=== PATIENT | female | born 1960 | race Caucasian/White ===

== ENCOUNTER 2018-05-06 22:12 | Inpatient (IN) | payer BC, OTHER ==
[~2018-05-06] VITALS: Ht 149.9 cm; Wt 119.0 kg
[2018-05-07] MEDS ORDERED: SOD CHLORIDE 0.9% 500 ML IV STA (00:31)
[2018-05-07] MEDS ORDERED: AMLO-147 PO (03:49)
[2018-05-07] MEDS ORDERED: LEVO50TA7 PO (03:49)
[2018-05-07] MEDS ORDERED: DAPS25TA PO (03:49)
[2018-05-07] MEDS ORDERED: PRED5TAB PO (03:49)
[2018-05-07] MEDS ORDERED: DOCU100T9 PO (03:49)
[2018-05-07] MEDS ORDERED: PANT40TA4 PO (03:49)
[2018-05-07] MEDS ORDERED: ALBUTEROL/IPRATROPIUM (NEB) 3 ML AMP HHN PRN (05:00)
[2018-05-07] MEDS ORDERED: NACL 0.9% 3 ML SYG IV SCH (05:00)
[2018-05-07] MEDS ORDERED: ACETAMINOPHEN 325 MG TAB PO PRN (05:00)
[2018-05-07] MEDS ORDERED: ONDANSETRON 4 MG INJ IV PRN (05:00)
--- NOTE | 2018-05-07 05:30 | ERD ---
ER Documentation Chief Complaint Chief Complaint BIB RA90,from home, bilat eye pressure pain radiating to L head,shakey HPI This is a very pleasant patient with ANCA vasculitis who comes in with complaints of headache and bilateral eye pressure and pain radiating to left head. She is also felt very shaky today. She is been very tremulous per the family member as well. Denies any nausea vomiting fevers or chills. Denies any chest pain. Does complain of palpitations. Denies any other current issues ROS All systems reviewed and are negative except as per history of present illness. Medications Home Meds Reported Medications Docusate Sodium (Stool Softener) 100 Mg Tablet, 100 MG PO BID 05/07/18 Pantoprazole* (Pantoprazole*) 40 Mg Tablet.dr, 40 MG PO DAILY 05/07/18 Amlodipine Besylate* (Amlodipine Besylate*) 10 Mg Tablet, 10 MG PO DAILY for 30 Days, #30 05/07/18 Levothyroxine Sodium* (Levothyroxine Sodium*) 50 Mcg Tablet, 50 MCG PO QAM for 30 Days, #30 TAKE 1 TABLET BY MOUTH EVERY DAY 05/07/18 Dapsone* (Dapsone*) 25 Mg Tablet, 50 MG PO QAM for 30 Days, #60 05/07/18 Prednisone* (Prednisone*) 5 Mg Tab, 5 MG PO QPM for 30 Days, #30 05/07/18 Allergies Allergies: Coded Allergies: No Known Allergy (Unverified , 05/07/18) PMhx/Soc History of Surgery: Yes (biopsy, cervix procedure years ago) Anesthesia Reaction: No Hx Neurological Disorder: No Hx Respiratory Disorders: No Hx Cardiac Disorders: No Hx Psychiatric Problems: No Hx Miscellaneous Medical Probl: Yes (recent dx vasculitis, hypothyroidism) Hx Alcohol Use: No Hx Substance Use: No Hx Tobacco Use: No Smoking Status: Never smoker Physical Exam Vitals Vital Signs Date Temp Pulse Resp B/P (MAP) Pulse Ox O2 O2 Flow FiO2 Time Delivery Rate 05/07/18 81 16 150/110 95 Room Air 04:02 (123) 05/06/18 97.9 104 18 157/99 94 22:17 (118) Physical Exam Const: No acute distress Head: Atraumatic Eyes: Normal Conjunctiva ENT: Normal External Ears, Nose and Mouth. Neck: Full range of motion. No meningismus. Resp: Clear to auscultation bilaterally Cardio: Regular rate and rhythm, no murmurs Abd: Soft, non tender, non distended. Normal bowel sounds Skin: No petechiae or rashes Back: No midline or flank tenderness Ext: No cyanosis, or edema Neur: Awake and alert Psych: Normal Mood and Affect Result Diagram: 05/07/185 05/07/185 Results 24 hrs Laboratory Tests Test 05/07/18 00:35 White Blood Count 8.7 10^3/ul Red Blood Count 3.50 10^6/ul Hemoglobin 10.4 g/dl Hematocrit 30.5 % Mean Corpuscular Volume 87.1 fl Mean Corpuscular Hemoglobin 29.7 pg Mean Corpuscular Hemoglobin Concent 34.1 g/dl Red Cell Distribution Width 18.9 % Platelet Count 209 10^3/UL Mean Platelet Volume 8.1 fl Immature Granulocytes % 3.700 % Neutrophils % 80.7 % Lymphocytes % 10.0 % Monocytes % 5.3 % Eosinophils % 0.1 % Basophils % 0.2 % Nucleated Red Blood Cells % 0.0 /100WBC Immature Granulocytes # 0.320 10^3/ul Neutrophils # 7.0 10^3/ul Lymphocytes # 0.9 10^3/ul Monocytes # 0.5 10^3/ul Eosinophils # 0.0 10^3/ul Basophils # 0.0 10^3/ul Nucleated Red Blood Cells # 0.0 10^3/ul Erythrocyte Sedimentation Rate 15 mm/Hr Prothrombin Time 11.1 Sec Prothrombin Time Ratio 0.9 INR International Normalized Ratio 0.79 Activated Partial Thromboplast Time 25.0 Sec Sodium Level 123 mmol/L Potassium Level 3.9 mmol/L Chloride Level 81 mmol/L Carbon Dioxide Level 29 mmol/L Anion Gap 13 Blood Urea Nitrogen 41 mg/dl Creatinine 2.67 mg/dl Est Glomerular Filtrat Rate mL/min 19 mL/min Glucose Level 111 mg/dl Calcium Level 9.4 mg/dl Troponin I < 0.012 ng/ml Thyroid Stimulating Hormone (TSH) 15.000 MIU/L Free Thyroxine Index 1.71 ug/ml Thyroxine (T4) 4.7 ug/dl Triiodothyronine (T3) Uptake 36.3 % Current Medications Medications Dose Sig/Sahra Start Time Status Last (Trade) Ordered Route PRN Stop Time Admin Dose Reason Admin Sodium 500 ml @ Q1H STAT 05/07/18 DC 05/07/18 Chloride 500 mls/hr IV 00:31 00:51 05/07/18 01:30 IV Flush 3 ml PER 05/07/18 (NS 3 ml) PROTOCOL IV 05:00 Ondansetron 4 mg Q6H PRN 05/07/18 HCl (Zofran IV 05:00 Inj) NAUSEA/VOMITI NG 650 mg Q6H PRN 05/07/18 Acetaminophen PO .PAIN 1-3 05:00 (Tylenol OR TEMP Tab) Heparin 5,000 unit Q12 SC 05/07/18 Sodium 09:00 (Porcine) (Heparin (5000 Units/1ml)) Albuterol/ 3 ml Q2H RESP 05/07/18 Ipratropium THERAPY PRN 05:00 (Duoneb) HHN SHORTNESS OF BREATH Procedures/MDM Department course: Patient seen and evaluated triage nurse. Placed in bed from evaluation. A stat cardiac workup. He was given normal saline fluid bolus. Serial exams remained stable here in the department. Diagnostic data: EKG: Rate/Rhythm: Tachycardic rate, regular rhythm QRS, ST, T-waves: [No changes consistent w/ acute ischemia] Impression: Sinus tachycardia Chest X-ray 1V Interpreted by me: Soft Tissue: No acute abnormalities Bones: No acute abnormalities Mediastinum/Cardiac Silhouette/Lungs: [No acute abnormalities] Medical decision making: This is a 57-year-old female with tremulousness to headache. She has no evidence of intracranial abnormality, however she is severely hyponatremic. She was also found to have abnormalities in her thyroid function. Patient will be admitted to telemetric setting further evaluation and management to the hospitalist physicians who has kindly accepted the patient to his service Departure Diagnosis: Primary Impression: Hyponatremia Condition: Serious RODRIGO EVERETT May 07, 2018 05:30
[2018-05-07] MEDS ORDERED: LEVOTHYROXINE 50 MCG TAB PO SCH (07:00)
--- NOTE | 2018-05-07 08:41 | HP ---
Date/Time of Note Date/Time of Note DATE: 05/07/18 TIME: 08:35 Assessment/Plan VTE Prophylaxis Pharmacological prophylaxis: heparin Lines/Catheters IV Catheter Type (from Nrs): Saline Lock Assessment/Plan Assessment/Plan 1. Depression: Patient feeling hopeless. Denied suicidal or homicidal ideation -She said that she has been taking antidepressant medication but she does not remember the name -Psychiatry evaluation 2. Headache/dizziness: Likely secondary to hyponatremia -Head CT negative for acute findings 3. Hyponatremia: Patient reported that she has been on antidepressant medication, so side effect of SSRI is a possibility -Urine electrolytes, osmolality and uric acid to workup hyponatremia -Consider endocrine or nephrology consult 4. Hypothyroidism: Continue Synthroid 5. ?Recently diagnosed vasculitis: Patient currently appears somehow lethargic and sleepy and as such not providing more info. Daytime MD to talk to her apryl ng the day to gather more info. Patient home medication includes prednisone. Result Diagram: 05/07/18 0035 05/07/18 0035 Results 24hrs Laboratory Tests Test 05/07/18 00:35 White Blood Count 8.7 Red Blood Count 3.50 L Hemoglobin 10.4 L Hematocrit 30.5 L Mean Corpuscular Volume 87.1 Mean Corpuscular Hemoglobin 29.7 Mean Corpuscular Hemoglobin Concent 34.1 Red Cell Distribution Width 18.9 H Platelet Count 209 Mean Platelet Volume 8.1 Immature Granulocytes % 3.700 H Neutrophils % 80.7 H Lymphocytes % 10.0 L Monocytes % 5.3 Eosinophils % 0.1 Basophils % 0.2 Nucleated Red Blood Cells % 0.0 Immature Granulocytes # 0.320 H Neutrophils # 7.0 Lymphocytes # 0.9 Monocytes # 0.5 Eosinophils # 0.0 Basophils # 0.0 Nucleated Red Blood Cells # 0.0 Erythrocyte Sedimentation Rate 15 Prothrombin Time 11.1 L Prothrombin Time Ratio 0.9 INR International Normalized Ratio 0.79 Activated Partial Thromboplast Time 25.0 Sodium Level 123 L Potassium Level 3.9 Chloride Level 81 L Carbon Dioxide Level 29 Anion Gap 13 Blood Urea Nitrogen 41 H Creatinine 2.67 H Est Glomerular Filtrat Rate mL/min 19 L Glucose Level 111 Osmolality 265 L Uric Acid 5.1 Calcium Level 9.4 Troponin I < 0.012 Thyroid Stimulating Hormone (TSH) 15.000 H Free Thyroxine Index 1.71 Thyroxine (T4) 4.7 L Triiodothyronine (T3) Uptake 36.3 HPI/ROS Admit Date/Time Admit Date/Time Hx of Present Illness This is a 57-year-old female with a history of depression, hypothyroidism, vasculitis who presents the ER complaining of feeling "depressed". She also complains of headache and dizziness. She says she feels hopeless. She denies suicidal or homicidal ideation even though she says in the past she thought about hurting herself. Patient appears somewhat lethargic/sleepy, but arousable. She has not been answering all questions. She said she was hungry and was asking for food. When she presented to ER, she is found to have sodium of 123. Head CT shows paranasal sinus disease and presence of bubbly secretions in the right sphenoid sinus suggests an acute component. . PMH/Family/Social Past Medical History Medical History: other (See HPI) Medications Current Medications IV Flush (NS 3 ml) 3 ml PER PROTOCOL IV ; Start 05/07/18 at 05:00 Ondansetron HCl (Zofran Inj) 4 mg Q6H PRN IV NAUSEA/VOMITING; Start 05/07/18 at 05:00 Acetaminophen (Tylenol Tab) 650 mg Q6H PRN PO .PAIN 1-3 OR TEMP; Start 05/07/18 at 05:00 Heparin Sodium (Porcine) (Heparin (5000 Units/1ml)) 5,000 unit Q12 SC ; Start 05/07/18 at 09:00 Albuterol/ Ipratropium (Duoneb) 3 ml Q2H RESP THERAPY PRN HHN SHORTNESS OF BREATH; Start 05/07/18 at 05:00 Coded Allergies: No Known Allergy (Unverified , 05/07/18) Past Surgical History Past Surgical Hx: other (See HPI) Family History Significant Family History: no pertinent family hx Social History Alcohol Use: none Smoking Status: Never smoker Drug Use: none Exam/Review of Systems Vital Signs Vitals Vital Signs Date Temp Pulse Resp B/P (MAP) Pulse Ox O2 O2 Flow FiO2 Time Delivery Rate 05/07/18 64 16 112/87 97 Room Air 07:14 (95) 05/06/18 97.9 22:17 Intake and Output 05/06/18 05/06/18 05/07/18 1515:00 23:00 07:00 IntakeIntake Total 500 ml BalanceBalance 500 ml Exam Constitutional: other (Sleepy, but arousable. No acute distress) Psych: depression Respiratory: clear to auscultation, normal air movement Cardiovascular: regular rate and rhythm, nl pulses Gastrointestinal: soft Extremities: normal pulses RODRIGO WU MD May 07, 2018 08:41
[2018-05-07] MEDS: PANTOPRAZOLE (EC) 40 MG TAB PO SCH (09:51)
[2018-05-07] MEDS: HEPARIN 5,000 UNIT/1 ML VIAL SC SCH ×2 (09:51→20:55)
[2018-05-07] MEDS: AMLODIPINE 10 MG TAB PO SCH (11:33)
[2018-05-07 14:25] VITALS: BP 126/84; PULSE 97; RESP 18
[2018-05-07 14:42] VITALS: PULSE 90
[2018-05-07 14:45] VITALS: Ht 149.9 cm; Wt 119.0 kg
[2018-05-07 15:15] VITALS: BP 109/73; PULSE 95; RESP 18
--- NOTE | 2018-05-07 16:16 | PSY ---
Date/Time of Note Date/Time of Note DATE: 05/07/18 TIME: 16:12 Psychiatric Subjective Eval Subjective Evaluation Chief Complaint: BIB RA90,from home, bilat eye pressure pain radiating to L head,shakey History of present illness Patient is a 57-year-old female with underlying medical issues of hypothyroidism, and vasculitis. The [id number] evaluation, patient states she has been increasingly depressed and lonely because of medical issues and keep poor kidney function. She however denies suicidal ideation and contracted for safety. Discussed risk and benefits of antidepressants with patient patient declined and states she is not willing to take antidepressants at this time until her kidney function improves. Past psychiatric history Denies Hospitalization: other Medical history Problems Medical Problems: (1) Hyponatremia Status: Acute Allergies: Coded Allergies: No Known Allergy (Unverified , 05/07/18) Substance Abuse Substance abuse history: No Prior substance abuse treatmen: No Social History Marital status: other DPA/Conservatorship: No Psychiatric Objective Eval Review of Systems: Review of Systems: Not Applicable Physical Examination: Physical Examination: Not Applicable Energy: Decreased Interest: Decreased Mental Status Examination: Appearance: Poor Hygiene Eye Contact: Fair Behavior: Cooperative Speech: Clear AFFECT: Flat Mood: Depressed Though Process: Linear Thought Content: Normal Orientation: x4 Cognition: Alert Insight: Intact Judgement: Intact Attention Span: Distractible Laboratory Results Laboratory Tests Test 05/07/18 00:35 White Blood Count 8.7 10^3/ul Red Blood Count 3.50 10^6/ul Hemoglobin 10.4 g/dl Hematocrit 30.5 % Mean Corpuscular Volume 87.1 fl Mean Corpuscular Hemoglobin 29.7 pg Mean Corpuscular Hemoglobin Concent 34.1 g/dl Red Cell Distribution Width 18.9 % Platelet Count 209 10^3/UL Mean Platelet Volume 8.1 fl Immature Granulocytes % 3.700 % Neutrophils % 80.7 % Lymphocytes % 10.0 % Monocytes % 5.3 % Eosinophils % 0.1 % Basophils % 0.2 % Nucleated Red Blood Cells % 0.0 /100WBC Immature Granulocytes # 0.320 10^3/ul Neutrophils # 7.0 10^3/ul Lymphocytes # 0.9 10^3/ul Monocytes # 0.5 10^3/ul Eosinophils # 0.0 10^3/ul Basophils # 0.0 10^3/ul Nucleated Red Blood Cells # 0.0 10^3/ul Erythrocyte Sedimentation Rate 15 mm/Hr Prothrombin Time 11.1 Sec Prothrombin Time Ratio 0.9 INR International Normalized Ratio 0.79 Activated Partial Thromboplast Time 25.0 Sec Sodium Level 123 mmol/L Potassium Level 3.9 mmol/L Chloride Level 81 mmol/L Carbon Dioxide Level 29 mmol/L Anion Gap 13 Blood Urea Nitrogen 41 mg/dl Creatinine 2.67 mg/dl Est Glomerular Filtrat Rate mL/min 19 mL/min Glucose Level 111 mg/dl Osmolality 265 mOsm/kg Uric Acid 5.1 mg/dl Calcium Level 9.4 mg/dl Troponin I < 0.012 ng/ml Thyroid Stimulating Hormone (TSH) 15.000 MIU/L Free Thyroxine Index 1.71 ug/ml Thyroxine (T4) 4.7 ug/dl Triiodothyronine (T3) Uptake 36.3 % Assessment and Plan Assessment/Diagnosis Diagnosis Depressive disorder single episode without psychosis Recommendation/Plan Medication Management Patient declined antidepressants Psychotherapy Provide supportive therapy Discharge Disposition: Other Legal Status: Voluntary ALANNA DE LA CRUZ NP May 07, 2018 16:16
[2018-05-07 16:27] VITALS: PULSE 93
[2018-05-07] MEDS ORDERED: LEVOTHYROXINE 88 MCG TAB PO ONE (18:00)
--- NOTE | 2018-05-07 18:00 | CONS ---
Assessment/Plan Assessment/Plan Problems: (1) Hypothyroidism Status: Chronic Comment: On her TSH her dosage of 50 mcg a day is a little bit small. We will go ahead and titrate up and follow this. Please note this can cause hyponatremia however I do not believe that this is the majority astro technician admit this individual case. Qualifiers: Qualified Codes: E03.9 - Hypothyroidism, unspecified (2) Hyponatremia Status: Acute Comment: May be due to accommodation not having a steroids with adrenal insufficiency, a side effect of dapsone which I doubt, hypothyroidism which I doubt, or the underlying vasculitis. Detailed to be obtained. (3) Anemia Status: Chronic Comment: Very likely due to the vasculitic inflammatory issue Qualifiers: Qualified Codes: D64.9 - Anemia, unspecified (4) Stage 2 acute kidney injury Status: Chronic Comment: She reports that she been having kidney issues while she was over at [facility]. (5) ANCA-positive vasculitis Status: Chronic Comment: She is already received dapsone prednisone and Rituxan. Will defer off management of this to the primary team and appropriate selected consultants as they may deem appropriate Consultation Date/Type/Reason Admit Date/Time May 07, 2018 Date of Consultation: May 07, 2018 Type of Consult Endocrinology Reason for Consultation Hypothyroidism; hyponatremia; ANCA positive vasculitis; Requesting Provider: ALO RIDDLE Date/Time of Note DATE: 05/07/18 TIME: 17:55 Hx of Present Illness This is a first recent [facility] admission for this 57-year-old woman who has recently been getting her medical care at [facility]. She carries a long history of hypothyroidism and is been on thyroid hormone support replacement therapy 50 mcg a day. She had recently been evaluated at [facility] and was ultimately found to have ANCA positive vasculitis. She has been on prednisone for this as well as Rituxan and dapsone. She reports that she had been having issues of hyponatremia predating the usage of the dapsone. At this time she is complaining of some myalgias Constitutional: no complaints (Denies fevers chills or sweats) Eyes: no complaints Respiratory: no complaints Cardiovascular: no complaints Musculoskeletal: other (Diffuse muscle aching) Past Medical History Medical History: hypothyroid, other (ANCA positive vasculitis;) Home Meds Reported Medications Docusate Sodium (Stool Softener) 100 Mg Tablet, 100 MG PO BID 05/07/18 Pantoprazole* (Pantoprazole*) 40 Mg Tablet.dr, 40 MG PO DAILY 05/07/18 Amlodipine Besylate* (Amlodipine Besylate*) 10 Mg Tablet, 10 MG PO DAILY for 30 Days, #30 05/07/18 Levothyroxine Sodium* (Levothyroxine Sodium*) 50 Mcg Tablet, 50 MCG PO QAM for 30 Days, #30 TAKE 1 TABLET BY MOUTH EVERY DAY 05/07/18 Dapsone* (Dapsone*) 25 Mg Tablet, 50 MG PO QAM for 30 Days, #60 05/07/18 Prednisone* (Prednisone*) 5 Mg Tab, 5 MG PO QPM for 30 Days, #30 05/07/18 Medications Current Medications IV Flush (NS 3 ml) 3 ml PER PROTOCOL IV ; Start 05/07/18 at 05:00 Ondansetron HCl (Zofran Inj) 4 mg Q6H PRN IV NAUSEA/VOMITING; Start 05/07/18 at 05:00 Acetaminophen (Tylenol Tab) 650 mg Q6H PRN PO .PAIN 1-3 OR TEMP; Start 05/07/18 at 05:00 Heparin Sodium (Porcine) (Heparin (5000 Units/1ml)) 5,000 unit Q12 SC Last administered on 05/07/18at 09:51; Admin Dose 5,000 UNIT; Start 05/07/18 at 09:00 Albuterol/ Ipratropium (Duoneb) 3 ml Q2H RESP THERAPY PRN HHN SHORTNESS OF BREATH; Start 05/07/18 at 05:00 Amlodipine Besylate (Norvasc) 10 mg DAILY PO Last administered on 05/07/18at 11:33; Admin Dose 10 MG; Start 05/07/18 at 09:00 Levothyroxine Sodium (Synthroid) 50 mcg AC BREAKFAST PO ; Start 05/07/18 at 07:00 Pantoprazole (Protonix Tab) 40 mg AC BREAKFAST PO Last administered on 05/07/18at 09:51; Admin Dose 40 MG; Start 05/07/18 at 07:00 Amoxicillin/ Clavulanate Potassium (Augmentin) 875 mg BID PO ; Start 05/07/18 at 21:00; Stop 05/17/18 at 20:59 Prednisone (Prednisone) 5 mg QPM PO ; Start 05/07/18 at 21:00 Allergies: Coded Allergies: No Known Allergy (Unverified , 05/07/18) Past Surgical History Past Surgical Hx: noncontributory, other (See HPI) Family History Significant Family History: no pertinent family hx Social History Alcohol Use: none Smoking Status: Never smoker Drug Use: none Exam/Review of Systems Exam Vitals Vital Signs Date Temp Pulse Resp B/P (MAP) Pulse Ox O2 O2 Flow FiO2 Time Delivery Rate 05/07/18 93 16:27 05/07/18 98.7 18 109/73 94 Room Air 15:15 (85) Intake and Output 05/06/18 05/06/18 05/07/18 1515:00 23:00 07:00 IntakeIntake Total 500 ml BalanceBalance 500 ml Constitutional: alert, oriented Head: normocephalic, atraumatic Neck: supple, non-tender Respiratory: clear to auscultation, normal air movement Cardiovascular: regular rate and rhythm, nl pulses Gastrointestinal: soft, nl liver, spleen, non-tender Results Result Diagram: 05/07/18 0035 05/07/18 1704 Results 24hrs Laboratory Tests Test 05/07/18 00:35 05/07/18 17:04 White Blood Count 8.7 Red Blood Count 3.50 L Hemoglobin 10.4 L Hematocrit 30.5 L Mean Corpuscular Volume 87.1 Mean Corpuscular Hemoglobin 29.7 Mean Corpuscular Hemoglobin Concent 34.1 Red Cell Distribution Width 18.9 H Platelet Count 209 Mean Platelet Volume 8.1 Immature Granulocytes % 3.700 H Neutrophils % 80.7 H Lymphocytes % 10.0 L Monocytes % 5.3 Eosinophils % 0.1 Basophils % 0.2 Nucleated Red Blood Cells % 0.0 Immature Granulocytes # 0.320 H Neutrophils # 7.0 Lymphocytes # 0.9 Monocytes # 0.5 Eosinophils # 0.0 Basophils # 0.0 Nucleated Red Blood Cells # 0.0 Erythrocyte Sedimentation Rate 15 Prothrombin Time 11.1 L Prothrombin Time Ratio 0.9 INR International Normalized Ratio 0.79 Activated Partial Thromboplast Time 25.0 Sodium Level 123 L 130 L Potassium Level 3.9 3.7 Chloride Level 81 L 91 #L Carbon Dioxide Level 29 31 Anion Gap 13 8 Blood Urea Nitrogen 41 H 43 H Creatinine 2.67 H 2.95 H Est Glomerular Filtrat Rate mL/min 19 L 17 L Glucose Level 111 128 Osmolality 265 L Uric Acid 5.1 Calcium Level 9.4 8.8 Troponin I < 0.012 Thyroid Stimulating Hormone (TSH) 15.000 H Free Thyroxine Index 1.71 Thyroxine (T4) 4.7 L Triiodothyronine (T3) Uptake 36.3 Medications Medication Current Medications IV Flush (NS 3 ml) 3 ml PER PROTOCOL IV ; Start 05/07/18 at 05:00 Ondansetron HCl (Zofran Inj) 4 mg Q6H PRN IV NAUSEA/VOMITING; Start 05/07/18 at 05:00 Acetaminophen (Tylenol Tab) 650 mg Q6H PRN PO .PAIN 1-3 OR TEMP; Start 05/07/18 at 05:00 Heparin Sodium (Porcine) (Heparin (5000 Units/1ml)) 5,000 unit Q12 SC Last a dministered on 05/07/18at 09:51; Admin Dose 5,000 UNIT; Start 05/07/18 at 09:00 Albuterol/ Ipratropium (Duoneb) 3 ml Q2H RESP THERAPY PRN HHN SHORTNESS OF BREATH; Start 05/07/18 at 05:00 Amlodipine Besylate (Norvasc) 10 mg DAILY PO Last administered on 05/07/18at 11:33; Admin Dose 10 MG; Start 05/07/18 at 09:00 Levothyroxine Sodium (Synthroid) 50 mcg AC BREAKFAST PO ; Start 05/07/18 at 07:00 Pantoprazole (Protonix Tab) 40 mg AC BREAKFAST PO Last administered on 05/07/18at 09:51; Admin Dose 40 MG; Start 05/07/18 at 07:00 Amoxicillin/ Clavulanate Potassium (Augmentin) 875 mg BID PO ; Start 05/07/18 at 21:00; Stop 05/17/18 at 20:59 Prednisone (Prednisone) 5 mg QPM PO ; Start 05/07/18 at 21:00 GLENDY WOOD MD May 07, 2018 18:00
--- NOTE | 2018-05-07 18:35 | CONS ---
DATE OF ADMISSION: 05/07/2018 DATE OF CONSULTATION: TYPE OF CONSULTATION: Nephrology. REASON FOR CONSULTATION: Acute kidney injury, CKD, hyponatremia. 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 Per patient, she states for several weeks and months, she was having prodroma l symptoms of malaise, fatigue, lethargy. The patient despite workup did not have diagnosis. The pa cony then states she was admitted to [facility] in 02/2018 in renal failure. The patient w as diagnosed with vasculitis presumed and possible renal limited versus microscopic polyangiitis. Th e patient states she was treated with steroids, status post 4 doses of Rituxan and received plasmaphe resis. The patient was eventually discharged home with steroids and has been following up with rheum atologist and business intelligence etl developer in outpatient setting. The patient states that she now presents to [facility] due to weakness and lethargy. The patient also complained of headache. Upon arrival to the emergency room, the patient had laboratory data drawn which showed a sodium of 123. T he patient had a BUN of 41, a creatinine of 2.6. The patient has CT scan of the head which showed pa ranasal sinus disease and secretions in the right sphenoid sinus suggestive of an acute compone nt. The patient denied any hemoptysis, hematemesis, any rashes or hematochezia. 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 PAST SURGICAL HISTORY: Status post biopsy. FAMILY HISTORY: No family history of kidney disease. SOCIAL HISTORY: Does not drink, smoke or do drugs. MEDICATIONS: Have been reviewed. REVIEW OF SYSTEMS: A 14-point review of systems conducted. Pertinent positives stated in HPI, other bronson negative. PHYSICAL EXAMINATION: VITAL SIGNS: Blood pressure is 109/73, respiration 19, pulse 95, temperature 98.7. HEENT: Head is normocephalic. NECK: Supple. HEART: Regular rate. LUNGS: Show diminished breath sounds at the base. ABDOMEN: Soft, nontender to palpation without rebound or guarding. EXTREMITIES: Negative for clubbing, cyanosis. No edema. DERMATOLOGIC: No rashes. MUSCULOSKELETAL: No joint effusion. NEUROLOGIC: No focal deficits. LABORATORY DATA: Show a sodium of 123, potassium 3.9, chloride 81, BUN 41, creatinine 2.69. TSH is 15. White count 8.7, hemoglobin 10.4 and platelet count 209. IMAGING STUDIES: Reviewed. ASSESSMENT AND PLAN: This is a 57-year-old female who presents with: 1. 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 The patient is status post pulse steroids, Rituxan x4, status post plasmapheresis. The patient's renal f unction has slowly been improving. Plan is to repeat UA with microanalysis to see if there is any ev idence of hematuria or active disease. We will recheck serologies. We will continue current treatme nt plan. We would continue prednisone. Otherwise, continue supportive care, renally dose all meds, avoid nephrotoxins. 2. Hyponatremia. Etiology is secondary to acute kidney injury causing decreased free water urinary excretion, possible component of hemodynamics in conjunction with polydipsia and low solute intake. Plan is to do a full evaluation. We will check urine sodium, urine osmolality. We will check uric a remi level, a.m. cortisol level. We would place the patient on free water restriction and encourage t he patient to have high osmolar salt diet. We will monitor serial sodium levels closely to ensure co rrection of no more than 10 to 12 mEq in a 24-hour period. Please note that the patient was reported to be taking antidepressants, SSRIs which may also be a contributing factor to hyponatremia. 3. Anemia. Monitor hemoglobin and hematocrit levels. 4. Mineral bone disorder. Monitor calcium and phosphorus levels. 5. Hypothyroidism. Continue Synthroid. 6. Antineutrophil cytoplasmic antibody-associated vasculitis. Unclear if this is granulomatosis wit h polyangiitis or microscopic polyangiitis. The patient's chest x-ray shows no radiographic findings of granulomatous; however CT scan did show evidence of sinusitis which can be seen in granulomatosis with polyangiitis. We would consider obtaining old medical records. We will continue to monitor th e patient closely. May consider possible pulmonary evaluation. Thank you, Dr. Lopez, for this interesting consult. It will be a pleasure to follow the patient with dylan longoria throughout the hospital course. Dictated By: KAYLIN WEISS DO NR/NTS Conf#: [id number] DID#: [id number] CC: RODRIGO WU MD;*[facility]*
[2018-05-07 19:52] VITALS: BP 120/83; PULSE 55; RESP 19
[2018-05-07 20:00] VITALS: PULSE 90
[2018-05-07] MEDS: predniSONE 5 MG TAB PO SCH (20:39)
[2018-05-07] MEDS: AMOXICILLIN/CLAV 875 MG TAB PO SCH (20:39)
[2018-05-07] MEDS ORDERED: predniSONE 5 MG TAB PO SCH (21:00)
[2018-05-07] MEDS ORDERED: predniSONE 2.5 MG TAB PO SCH (21:00)
[2018-05-08] VITALS (10 sets, daily range): BP systolic 113–127; BP diastolic 75–88; PULSE 66–86; RESP 18–19
[2018-05-08] MEDS: LEVOTHYROXINE 88 MCG TAB PO SCH (06:26)
[2018-05-08] MEDS: PANTOPRAZOLE (EC) 40 MG TAB PO SCH (06:26)
[2018-05-08] MEDS: AMOXICILLIN/CLAV 875 MG TAB PO SCH ×2 (08:54→21:10)
[2018-05-08] MEDS: DOCUSATE SODIUM 250 MG CAP PO SCH (08:55)
[2018-05-08] MEDS: DAPSONE 25 MG TABLET PO SCH (08:56)
[2018-05-08] MEDS: predniSONE 5 MG TAB PO SCH (08:56)
[2018-05-08] MEDS: AMLODIPINE 10 MG TAB PO SCH (08:56)
[2018-05-08] MEDS: HEPARIN 5,000 UNIT/1 ML VIAL SC SCH ×2 (09:01→21:20)
--- NOTE | 2018-05-08 09:39 | PN ---
DATE: 05/08/2018 SUBJECTIVE: The patient is stable, no events overnight. OBJECTIVE: VITAL SIGNS: Blood pressure is 120/85, respirations 18, pulse 76, temperature 98.2. HEENT: Head is normocephalic. NECK: Supple. HEART: Regular rate. LUNGS: Show diminished breath sounds at the base. ABDOMEN: Soft, nontender to palpation without rebound or guarding. EXTREMITIES: Negative for clubbing, cyanosis, no edema. DERMATOLOGIC: No rashes. MUSCULOSKELETAL: No joint effusion. NEUROLOGIC: No change in exam. MEDICATIONS: Reviewed. LABORATORY DATA: Shows sodium 130, potassium 4.6, BUN 50, creatinine 3.20. White count 5.7, hemoglo bin 8.8, platelet count is 180. Urinalysis shows positive pyuria. The patient's C3 level is 63. ASSESSMENT AND PLAN: 1. Nonoliguric acute kidney injury with previously unknown baseline creatinine. Etiology of acute k idney injury was secondary to ANCA associated vasculitis. The patient is status post steroids with t oxin x4, status post plasmapheresis. The patient's creatinine per the patient has improved and is cu rrently no longer dialysis dependent. Currently, the patient is receiving prednisone 20 mg a.m. 5 mg p.m. on a taper dose per outpatient advertising director. The patient is also scheduled for future Rituxan infusion. The patient's repeat urinalysis does show hematuria, which is suggestive of active disease . At this point, we would continue current treatment plan, the patient's home regimen of prednisone and we will monitor renal function closely. 3. Hypernatremia, etiology is secondary to decreased free water urinary excretion secondary to chron ic kidney disease. The patient's sodium levels have been improving. Continue free water restriction . The patient's urine osmolarity does show patient can adequately dilute urine. 4. Anemia. Monitor hemoglobin and hematocrit levels. 5. Mineral bone disorder. Monitor calcium and phosphorus levels. 6. Hypothyroidism. Continue Synthroid. 7. ANCA associated vasculitis, unclear if this is granulomatous with polyangiitis or microscopic mauricio yangiitis i.e. renal-limited vasculitis. The patient's chest x-ray shows no radiographic findings of granulomatous however, CT scan did show evidence of sinusitis, which can be seen in a GPA diagnosis. At this point, we will try to obtain old medical records. Continue to monitor closely. Dictated By: KAYLIN BRADY/KEVIN Conf#: [id number] DID#: [id number] CC: KEANU TROY MD; RODRIGO WU MD;*[facility]*
--- NOTE | 2018-05-08 09:57 | QN ---
Documentation Comment Date of evaluation : 05/07/18 Time of evaluation : 9.30 am attempted to obtain more hx from patient but she was still very sleepy and lethargic Chart was reviewed and consults was obtained with endo, psych and nephro Continue current defined treatment plan for now ALO RIDDLE May 08, 2018 09:57
--- NOTE | 2018-05-08 10:02 | PN ---
Date/Time of Note Date/Time of Note DATE: 05/08/18 TIME: 09:57 Assessment/Plan VTE Prophylaxis Risk score (from Nsg)>0 risk: 2 Pharmacological prophylaxis: heparin Lines/Catheters IV Catheter Type (from Nrsg): Saline Lock Urinary Cath still in place: No Assessment/Plan Hospital Course S: no new complaints, states she didn't have headaches but that she felt fullness on the side of her head and sinus pressure. denies rhoinorrhea. also reports lethargy, O: General: A&O x3, answering questions appropriately, has good insight into disease HEENT: NC/ AT. PERRL. EOM intact Neck: supple CVS: S1, S2, RRR. no murmurs. no pain on chest wall palpation Lungs: CTA b/l. no wheezing or rhonchi Abd: soft, nontender, +BS Ext: moving all extremities skin: no rashes asessment and plan: 57 yo F who had presented with ?headaches tremor, and sinus pressure and lethargy now managed as follows : 1. Symptomatic hyponatremia -2/2 reduced output per nephrology 2. Sinusitis (acute) 3. 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 Poorly controlled hypothyroidism Plan: -serum Na levels improved, free water restriction per nephro -abx for sinusitis -continue prednisone and dapsone for vasculitis. renal function worsening however, change to IV? -treatment for hypothyroidism per endo -remain on tele monitoring for now, appreciate all consults Result Diagram: 05/08/18 0515 05/08/18 0515 Results 24hrs Laboratory Tests Test 05/07/18 17:02 05/07/18 17:04 05/07/18 18:10 05/08/18 05:15 Complement C3 63 L Complement C4 29 Sodium Level 130 L 130 L Potassium Level 3.7 4.6 Chloride Level 91 #L 93 L Carbon Dioxide Level 31 31 Anion Gap 8 6 Blood Urea Nitrogen 43 H 50 H Creatinine 2.95 H 3.20 H Est Glomerular 17 L 15 L Filtrat Rate mL/min Glucose Level 128 124 Calcium Level 8.8 9.0 Urine Color STRAW Urine Clarity CLEAR Urine pH 8.0 Urine Specific 1.005 [place] Urine Ketones NEGATIVE Urine Nitrite NEGATIVE Urine Bilirubin NEGATIVE Urine Urobilinogen NEGATIVE Urine Leukocyte NEGATIVE Esterase Urine Microscopic 74 H RBC Urine Microscopic 1 WBC Urine Squamous FEW Epithelial Cells Urine Amorphous FEW A Crystals Urine Hemoglobin 3+ H Urine Osmolality 190 L Urine Random 32.96 Creatinine Urine Random Sodium 50 Urine Random < 9.7 L Potassium Urine Glucose 1+ H Urine Total Protein 86.0 H White Blood Count 5.7 # Red Blood Count 2.94 L Hemoglobin 8.8 L Hematocrit 26.9 L Mean Corpuscular 91.5 Volume Mean Corpuscular 29.9 Hemoglobin Mean Corpuscular 32.7 Hemoglobin Concent Red Cell 19.3 H Distribution Width Platelet Count 180 Mean Platelet Volume 8.4 Immature 2.800 H Granulocytes % Neutrophils % 85.2 H Lymphocytes % 8.5 L Monocytes % 3.3 Eosinophils % 0.0 Basophils % 0.2 Nucleated Red Blood 0.0 Cells % Immature 0.160 H Granulocytes # Neutrophils # 4.8 Lymphocytes # 0.5 L Monocytes # 0.2 L Eosinophils # 0.0 Basophils # 0.0 Nucleated Red Blood 0.0 Cells # Hemoglobin A1c 5.6 Magnesium Level 1.9 Total Bilirubin 0.5 Direct Bilirubin 0.00 Indirect Bilirubin 0.5 Aspartate Amino 12 L Transf (AST/SGOT) Alanine 34 Aminotransferase (AL T/SGPT) Alkaline Phosphatase 55 Total Protein 5.5 L Albumin 3.2 L Globulin 2.30 Albumin/Globulin 1.39 Ratio Triglycerides Level 79 Cholesterol Level 237 H LDL Cholesterol, 131 Calculated HDL Cholesterol 90 Cholesterol/HDL 2.6 Ratio Thyroid Stimulating 7.910 H Hormone (TSH) Exam/Review of Systems Exam Vitals Vital Signs Date Temp Pulse Resp B/P (MAP) Pulse Ox O2 O2 Flow FiO2 Time Delivery Rate 05/08/18 84 08:11 05/08/18 98.2 18 120/85 94 04:00 (97) 05/07/18 Room Air 15:15 Intake and Output 05/07/18 05/07/18 05/08/18 1515:00 23:00 07:00 IntakeIntake Total 480 ml 300 ml BalanceBalance 480 ml 300 ml Results Results 24hrs Laboratory Tests Test 05/07/18 17:02 05/07/18 17:04 05/07/18 18:10 05/08/18 05:15 Complement C3 63 L Complement C4 29 Sodium Level 130 L 130 L Potassium Level 3.7 4.6 Chloride Level 91 #L 93 L Carbon Dioxide Level 31 31 Anion Gap 8 6 Blood Urea Nitrogen 43 H 50 H Creatinine 2.95 H 3.20 H Est Glomerular 17 L 15 L Filtrat Rate mL/min Glucose Level 128 124 Calcium Level 8.8 9.0 Urine Color STRAW Urine Clarity CLEAR Urine pH 8.0 Urine Specific 1.005 [place] Urine Ketones NEGATIVE Urine Nitrite NEGATIVE Urine Bilirubin NEGATIVE Urine Urobilinogen NEGATIVE Urine Leukocyte NEGATIVE Esterase Urine Microscopic 74 H RBC Urine Microscopic 1 WBC Urine Squamous FEW Epithelial Cells Urine Amorphous FEW A Crystals Urine Hemoglobin 3+ H Urine Osmolality 190 L Urine Random 32.96 Creatinine Urine Random Sodium 50 Urine Random < 9.7 L Potassium Urine Glucose 1+ H Urine Total Protein 86.0 H White Blood Count 5.7 # Red Blood Count 2.94 L Hemoglobin 8.8 L Hematocrit 26.9 L Mean Corpuscular 91.5 Volume Mean Corpuscular 29.9 Hemoglobin Mean Corpuscular 32.7 Hemoglobin Concent Red Cell 19.3 H Distribution Width Platelet Count 180 Mean Platelet Volume 8.4 Immature 2.800 H Granulocytes % Neutrophils % 85.2 H Lymphocytes % 8.5 L Monocytes % 3.3 Eosinophils % 0.0 Basophils % 0.2 Nucleated Red Blood 0.0 Cells % Immature 0.160 H Granulocytes # Neutrophils # 4.8 Lymphocytes # 0.5 L Monocytes # 0.2 L Eosinophils # 0.0 Basophils # 0.0 Nucleated Red Blood 0.0 Cells # Hemoglobin A1c 5.6 Magnesium Level 1.9 Total Bilirubin 0.5 Direct Bilirubin 0.00 Indirect Bilirubin 0.5 Aspartate Amino 12 L Transf (AST/SGOT) Alanine 34 Aminotransferase (AL T/SGPT) Alkaline Phosphatase 55 Total Protein 5.5 L Albumin 3.2 L Globulin 2.30 Albumin/Globulin 1.39 Ratio Triglycerides Level 79 Cholesterol Level 237 H LDL Cholesterol, 131 Calculated HDL Cholesterol 90 Cholesterol/HDL 2.6 Ratio Thyroid Stimulating 7.910 H Hormone (TSH) Medications Medication Current Medications IV Flush (NS 3 ml) 3 ml PER PROTOCOL IV ; Start 05/07/18 at 05:00 Ondansetron HCl (Zofran Inj) 4 mg Q6H PRN IV NAUSEA/VOMITING; Start 05/07/18 at 05:00 Acetaminophen (Tylenol Tab) 650 mg Q6H PRN PO .PAIN 1-3 OR TEMP; Start 05/07/18 at 05:00 Heparin Sodium (Porcine) (Heparin (5000 Units/1ml)) 5,000 unit Q12 SC Last administered on 05/08/18 09:01; Admin Dose 5,000 UNIT; Start 05/07/18 at 09:00 Albuterol/ Ipratropium (Duoneb) 3 ml Q2H RESP THERAPY PRN HHN SHORTNESS OF BREATH; Start 05/07/18 at 05:00 Amlodipine Besylate (Norvasc) 10 mg DAILY PO Last administered on 05/08/18 08:56; Admin Dose 10 MG; Start 05/07/18 at 09:00 Pantoprazole (Protonix Tab) 40 mg AC BREAKFAST PO Last administered on 05/08/18 06:26; Admin Dose 40 MG; Start 05/07/18 at 07:00 Amoxicillin/ Clavulanate Potassium (Augmentin) 875 mg BID PO Last administered on 05/08/18 08:54; Admin Dose 875 MG; Start 05/07/18 at 21:00; Stop 05/17/18 at 20:59 Levothyroxine Sodium (Synthroid) 88 mcg AC BREAKFAST PO Last administered on 05/08/18 06:26; Admin Dose 88 MCG; Start 05/08/18 at 07:00 Prednisone (Prednisone) 5 mg QAM PO Last administered on 05/08/18 08:56; Admin Dose 5 MG; Start 05/07/18 at 21:00 Prednisone (Prednisone) 2.5 mg QPM PO ; Start 05/07/18 at 21:00 Dapsone (Dapsone) 50 mg QAM PO Last administered on 05/08/18 08:56; Admin Dose 50 MG; Start 05/08/18 at 09:00 Docusate Sodium (Colace) 250 mg DAILY PO Last administered on 05/08/18 08:55; Admin Dose 250 MG; Start 05/08/18 at 09:00 ALO RIDDLE May 08, 2018 10:02
--- NOTE | 2018-05-08 13:57 | CONS ---
Assessment/Plan Assessment/Plan Problems: (1) Hypothyroidism Status: Chronic Comment: Patient is improving on a higher dosage of levothyroxine. This will not stabilize out-equilibrate for another 5 weeks. Qualifiers: Hypothyroidism type: acquired Qualified Codes: E03.9 - Hypothyroidism, unspecified (2) Hyponatremia Status: Acute Comment: Improved without significant aggressive intervention. Again I believe this is primarily due to the kidney injury as opposed to other primary issues. However she is receiving physiologic replacement steroids. I am going to hold this evening's dose of prednisone to 11 PM cortisol and a morning cortisol and her put her back on her steroids. Again I doubt that she has true adrenal insufficiency but let us check to be sure (3) ANCA-positive vasculitis Status: Chronic Comment: As per primary team (4) Stage 2 acute kidney injury Status: Chronic Comment: As per nephrology Consultation Date/Type/Reason Admit Date/Time May 07, 2018 at 04:27 Initial Consult Date 05/07/18 Type of Consult Endocrinology Reason for Consultation Hypothyroidism; hyponatremia; ankle positive ANCA + vasculitis; kidney injury Requesting Provider: ALO RIDDLE Date/Time of Note DATE: 05/08/18 TIME: 13:54 24 HR Interval Summary Free Text/Dictation Patient reports she is feeling a little bit better Constitutional: no complaints Detailed Summary Gastrointestinal: constipation Endocrine: no complaints Exam/Review of Systems Exam Vitals Vital Signs Date Temp Pulse Resp B/P (MAP) Pulse Ox O2 O2 Flow FiO2 Time Delivery Rate 05/08/18 74 12:21 05/08/18 98.6 19 123/84 95 11:40 (97) 05/07/18 Room Air 15:15 Intake and Output 05/07/18 05/07/18 05/08/18 1414:59 22:59 06:59 IntakeIntake Total 480 ml 300 ml BalanceBalance 480 ml 300 ml Constitutional: alert, oriented Cardiovascular: regular rate and rhythm, nl pulses Gastrointestinal: soft, nl liver, spleen, non-tender Results Result Diagram: 05/08/18 0515 05/08/18 0515 Results 24hrs Laboratory Tests Test 05/07/18 17:02 05/07/18 17:04 05/07/18 18:10 05/08/18 05:15 Complement C3 63 L Complement C4 29 Sodium Level 130 L 130 L Potassium Level 3.7 4.6 Chloride Level 91 #L 93 L Carbon Dioxide Level 31 31 Anion Gap 8 6 Blood Urea Nitrogen 43 H 50 H Creatinine 2.95 H 3.20 H Est Glomerular 17 L 15 L Filtrat Rate mL/min Glucose Level 128 124 Calcium Level 8.8 9.0 Urine Color STRAW Urine Clarity CLEAR Urine pH 8.0 Urine Specific 1.005 [place] Urine Ketones NEGATIVE Urine Nitrite NEGATIVE Urine Bilirubin NEGATIVE Urine Urobilinogen NEGATIVE Urine Leukocyte NEGATIVE Esterase Urine Microscopic 74 H RBC Urine Microscopic 1 WBC Urine Squamous FEW Epithelial Cells Urine Amorphous FEW A Crystals Urine Hemoglobin 3+ H Urine Osmolality 190 L Urine Random 32.96 Creatinine Urine Random Sodium 50 Urine Random < 9.7 L Potassium Urine Glucose 1+ H Urine Total Protein 86.0 H White Blood Count 5.7 # Red Blood Count 2.94 L Hemoglobin 8.8 L Hematocrit 26.9 L Mean Corpuscular 91.5 Volume Mean Corpuscular 29.9 Hemoglobin Mean Corpuscular 32.7 Hemoglobin Concent Red Cell 19.3 H Distribution Width Platelet Count 180 Mean Platelet Volume 8.4 Immature 2.800 H Granulocytes % Neutrophils % 85.2 H Lymphocytes % 8.5 L Monocytes % 3.3 Eosinophils % 0.0 Basophils % 0.2 Nucleated Red Blood 0.0 Cells % Immature 0.160 H Granulocytes # Neutrophils # 4.8 Lymphocytes # 0.5 L Monocytes # 0.2 L Eosinophils # 0.0 Basophils # 0.0 Nucleated Red Blood 0.0 Cells # Hemoglobin A1c 5.6 Phosphorus Level 4.4 Magnesium Level 1.9 Total Bilirubin 0.5 Direct Bilirubin 0.00 Indirect Bilirubin 0.5 Aspartate Amino 12 L Transf (AST/SGOT) Alanine 34 Aminotransferase (AL T/SGPT) Alkaline Phosphatase 55 Total Protein 5.5 L Albumin 3.2 L Globulin 2.30 Albumin/Globulin 1.39 Ratio Triglycerides Level 79 Cholesterol Level 237 H LDL Cholesterol, 131 Calculated HDL Cholesterol 90 Cholesterol/HDL 2.6 Ratio Thyroid Stimulating 7.910 H Hormone (TSH) Medications Medication Current Medications IV Flush (NS 3 ml) 3 ml PER PROTOCOL IV ; Start 05/07/18 at 05:00 Ondansetron HCl (Zofran Inj) 4 mg Q6H PRN IV NAUSEA/VOMITING; Start 05/07/18 at 05:00 Acetaminophen (Tylenol Tab) 650 mg Q6H PRN PO .PAIN 1-3 OR TEMP; Start 05/07/18 at 05:00 Heparin Sodium (Porcine) (Heparin (5000 Units/1ml)) 5,000 unit Q12 SC Last administered on 05/08/18 09:01; Admin Dose 5,000 UNIT; Start 05/07/18 at 09:00 Albuterol/ Ipratropium (Duoneb) 3 ml Q2H RESP THERAPY PRN HHN SHORTNESS OF BREATH; Start 05/07/18 at 05:00 Amlodipine Besylate (Norvasc) 10 mg DAILY PO Last administered on 05/08/18 08:56; Admin Dose 10 MG; Start 05/07/18 at 09:00 Pantoprazole (Protonix Tab) 40 mg AC BREAKFAST PO Last administered on 05/08/18 06:26; Admin Dose 40 MG; Start 05/07/18 at 07:00 Amoxicillin/ Clavulanate Potassium (Augmentin) 875 mg BID PO Last administered on 05/08/18 08:54; Admin Dose 875 MG; Start 05/07/18 at 21:00; Stop 05/17/18 at 20:59 Levothyroxine Sodium (Synthroid) 88 mcg AC BREAKFAST PO Last administered on 05/08/18 06:26; Admin Dose 88 MCG; Start 05/08/18 at 07:00 Prednisone (Prednisone) 5 mg QAM PO Last administered on 05/08/18 08:56; Admin Dose 5 MG; Start 05/07/18 at 21:00 Prednisone (Prednisone) 2.5 mg QPM PO ; Start 05/07/18 at 21:00 Dapsone (Dapsone) 50 mg QAM PO Last administered on 05/08/18 08:56; Admin Dose 50 MG; Start 05/08/18 at 09:00 Docusate Sodium (Colace) 250 mg DAILY PO Last administered on 05/08/18 08:55; Admin Dose 250 MG; Start 05/08/18 at 09:00 GLENDY WOOD MD May 08, 2018 13:57
[2018-05-08] MEDS ORDERED: LACTULOSE 30ML CUP PO ONE (14:00)
[2018-05-09] VITALS (13 sets, daily range): BP systolic 116–139; BP diastolic 72–93; PULSE 68–109; RESP 17–18
[2018-05-09] MEDS: PANTOPRAZOLE (EC) 40 MG TAB PO SCH (05:28)
[2018-05-09] MEDS: LEVOTHYROXINE 88 MCG TAB PO SCH (05:28)
--- NOTE | 2018-05-09 06:47 | PN ---
Date/Time of Note Date/Time of Note DATE: 05/09/18 TIME: 06:46 Assessment/Plan VTE Prophylaxis Risk score (from Nsg)>0 risk: 2 SCD applied (from Nsg): No Lines/Catheters IV Catheter Type (from Nrsg): Saline Lock Urinary Cath still in place: No Assessment/Plan Hospital Course S: no new complaints, O: General: A&O x3, answering questions appropriately, has good insight into disease HEENT: NC/ AT. PERRL. EOM intact Neck: supple CVS: S1, S2, RRR. no murmurs. no pain on chest wall palpation Lungs: CTA b/l. no wheezing or rhonchi Abd: soft, nontender, +BS Ext: moving all extremities skin: no rashes asessment and plan: 57 yo F who had presented with ?headaches tremor, and sinus pressure and lethargy now managed as follows : 1. Symptomatic hyponatremia -2/2 reduced output per nephrology -Na levels improving 2. Sinusitis (acute) 3. 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 Poorly controlled hypothyroidism 5. Plan: -serum Na levels improved but still low, with free water restriction per nephro -abx for sinusitis -continue prednisone and dapsone for vasculitis. renal function still worsening however, change to IV steroids? -treatment for hypothyroidism per endo -remain on tele monitoring for now, appreciate all consults Result Diagram: 05/09/18 0517 05/09/18 0517 Results 24hrs Laboratory Tests Test 05/08/18 23:18 05/09/18 05:17 Random Cortisol 2.1 White Blood Count 6.7 Red Blood Count 2.81 L Hemoglobin 8.4 L Hematocrit 26.3 L Mean Corpuscular Volume 93.6 Mean Corpuscular Hemoglobin 29.9 Mean Corpuscular Hemoglobin Concent 31.9 L Red Cell Distribution Width 19.8 H Platelet Count 177 Mean Platelet Volume 8.5 Immature Granulocytes % 4.200 H Neutrophils % 69.3 Lymphocytes % 18.5 Monocytes % 5.3 Eosinophils % 2.1 Basophils % 0.6 Nucleated Red Blood Cells % 0.0 Immature Granulocytes # 0.280 H Neutrophils # 4.6 Lymphocytes # 1.2 Monocytes # 0.4 Eosinophils # 0.1 Basophils # 0.0 Nucleated Red Blood Cells # 0.0 Sodium Level 132 L Potassium Level 4.4 Chloride Level 96 L Carbon Dioxide Level 30 Anion Gap 6 Blood Urea Nitrogen 54 H Creatinine 3.34 H Est Glomerular Filtrat Rate mL/min 14 L Glucose Level 83 # Calcium Level 8.8 Phosphorus Level 3.4 Magnesium Level 1.9 Exam/Review of Systems Exam Vitals Vital Signs Date Temp Pulse Resp B/P (MAP) Pulse Ox O2 O2 Flow FiO2 Time Delivery Rate 05/09/18 68 04:16 05/09/18 98.5 18 120/84 97 04:00 (96) 05/08/18 Room Air 20:00 Intake and Output 05/08/18 05/08/18 05/09/18 1515:00 23:00 07:00 IntakeIntake Total 420 ml 400 ml BalanceBalance 420 ml 400 ml Results Results 24hrs Laboratory Tests Test 05/08/18 23:18 05/09/18 05:17 Random Cortisol 2.1 White Blood Count 6.7 Red Blood Count 2.81 L Hemoglobin 8.4 L Hematocrit 26.3 L Mean Corpuscular Volume 93.6 Mean Corpuscular Hemoglobin 29.9 Mean Corpuscular Hemoglobin Concent 31.9 L Red Cell Distribution Width 19.8 H Platelet Count 177 Mean Platelet Volume 8.5 Immature Granulocytes % 4.200 H Neutrophils % 69.3 Lymphocytes % 18.5 Monocytes % 5.3 Eosinophils % 2.1 Basophils % 0.6 Nucleated Red Blood Cells % 0.0 Immature Granulocytes # 0.280 H Neutrophils # 4.6 Lymphocytes # 1.2 Monocytes # 0.4 Eosinophils # 0.1 Basophils # 0.0 Nucleated Red Blood Cells # 0.0 Sodium Level 132 L Potassium Level 4.4 Chloride Level 96 L Carbon Dioxide Level 30 Anion Gap 6 Blood Urea Nitrogen 54 H Creatinine 3.34 H Est Glomerular Filtrat Rate mL/min 14 L Glucose Level 83 # Calcium Level 8.8 Phosphorus Level 3.4 Magnesium Level 1.9 Medications Medication Current Medications IV Flush (NS 3 ml) 3 ml PER PROTOCOL IV ; Start 05/07/18 at 05:00 Ondansetron HCl (Zofran Inj) 4 mg Q6H PRN IV NAUSEA/VOMITING; Start 05/07/18 at 05:00 Acetaminophen (Tylenol Tab) 650 mg Q6H PRN PO .PAIN 1-3 OR TEMP; Start 05/07/18 at 05:00 Heparin Sodium (Porcine) (Heparin (5000 Units/1ml)) 5,000 unit Q12 SC Last administered on 05/08/18 21:20; Admin Dose 5,000 UNIT; Start 05/07/18 at 09:00 Albuterol/ Ipratropium (Duoneb) 3 ml Q2H RESP THERAPY PRN HHN SHORTNESS OF BREATH; Start 05/07/18 at 05:00 Amlodipine Besylate (Norvasc) 10 mg DAILY PO Last administered on 05/08/18 08:56; Admin Dose 10 MG; Start 05/07/18 at 09:00 Pantoprazole (Protonix Tab) 40 mg AC BREAKFAST PO Last administered on 05/09/18 05:28; Admin Dose 40 MG; Start 05/07/18 at 07:00 Amoxicillin/ Clavulanate Potassium (Augmentin) 875 mg BID PO Last administered on 05/08/18 21:10; Admin Dose 875 MG; Start 05/07/18 at 21:00; Stop 05/17/18 at 20:59 Levothyroxine Sodium (Synthroid) 88 mcg AC BREAKFAST PO Last administered on 05/09/18 05:28; Admin Dose 88 MCG; Start 05/08/18 at 07:00 Prednisone (Prednisone) 5 mg QAM PO Last administered on 05/08/18 08:56; Admin Dose 5 MG; Start 05/07/18 at 21:00 Prednisone (Prednisone) 2.5 mg QPM PO ; Start 05/07/18 at 21:00; Status Hold Dapsone (Dapsone) 50 mg QAM PO Last administered on 05/08/18 08:56; Admin Dose 50 MG; Start 05/08/18 at 09:00 Docusate Sodium (Colace) 250 mg DAILY PO Last administered on 05/08/18 08:55; Admin Dose 250 MG; Start 05/08/18 at 09:00 ALO RIDDLE May 09, 2018 06:47
[2018-05-09] MEDS: DOCUSATE SODIUM 250 MG CAP PO SCH (08:58)
[2018-05-09] MEDS: AMOXICILLIN/CLAV 875 MG TAB PO SCH ×2 (08:58→20:42)
[2018-05-09] MEDS: predniSONE 20 MG TAB PO SCH (08:58)
[2018-05-09] MEDS: AMLODIPINE 10 MG TAB PO SCH (08:58)
[2018-05-09] MEDS: DAPSONE 25 MG TABLET PO SCH (08:59)
[2018-05-09] MEDS: HEPARIN 5,000 UNIT/1 ML VIAL SC SCH ×2 (09:05→20:54)
--- NOTE | 2018-05-09 09:51 | PN ---
DATE: 05/09/2018 SUBJECTIVE: The patient is stable, complaining of some mild weakness. No other events noted. Urina ry output has been excellent. OBJECTIVE: VITAL SIGNS: Blood pressure is 129/88, respirations 18, pulse 71, temperature 98.5. HEENT: Head is normocephalic. NECK: Supple. HEART: Regular rate. LUNGS: Show diminished breath sounds at the base. ABDOMEN: Soft, nontender to palpation without rebound or guarding. EXTREMITIES: Negative for clubbing, cyanosis, no edema. DERMATOLOGIC: No rashes. MUSCULOSKELETAL: No joint effusion. NEUROLOGIC: No change in exam. MEDICATIONS: Reviewed. LABORATORY DATA: Shows sodium of 132, potassium 4.4, BUN 54, creatinine 3.34. White count 6.7, hemo globin 8.4, platelet count is 177. ASSESSMENT AND PLAN: 1. Nonoliguric acute kidney injury with previously unknown baseline creatinine. 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 The patient is status post rituximab x4, st atus post pulse steroids, status post plasmapheresis at outside hospital. Renal function has improve d and recent baseline creatinine is around 3.4 mg/dL per patient. Currently, the patient is on predn isone 20 mg p.o. in the a.m. and 5 mg p.m. on a taper dose per outpatient ore feeder. The patient is also scheduled for future Rituxan infusion. The patient's urinalysis does show hematuria, which s uggests active disease. Plan will be to continue current home regimen of prednisone and monitor jose r l function closely. 2. Hyponatremia, etiology is secondary to chronic kidney disease causing decreased free water urinar y excretion. The patient's sodium levels have been improving. Continue free water restriction. 3. Anemia. Continue to monitor hemoglobin and hematocrit levels. 4. Mineral bone disorder. Monitor calcium and phosphorus levels. 5. Hypothyroidism. Continue Synthroid. 6. ANCA associated vasculitis. Unclear if this is granulomatous with polyangiitis or microscopic po lyangiitis, i.e. renal-limited vasculitis. The patient is currently on prednisone. We will continue to monitor. Dictated By: KAYLIN BRADY/KEVIN Conf#: [id number] DID#: [id number] CC: KEANU TROY MD; RODRIGO WU MD;*[facility]*
--- NOTE | 2018-05-09 13:15 | CONS ---
Assessment/Plan Assessment/Plan Problems: (1) Hypothyroidism Status: Chronic Comment: On higher dose replacement therapy and coming into line. Please note be a few weeks before we establish the finalize dosing Qualifiers: Hypothyroidism type: acquired Qualified Codes: E03.9 - Hypothyroidism, unspecified (2) Stage 2 acute kidney injury Status: Chronic Comment: Noted and as per nephrology. (3) Hyponatremia Status: Acute Comment: This is improving. Please note the results at 11 PM and 8 AM cortisols. This was while we had avoided anything that would not be accidentally measured in the test. This patient has adrenal insufficiency which is iatrogenic on the basis of the exogenous high-dose steroids. According to the notes the patient came in on low-dose steroids which meant too rapid of a taper. With the dosage having been brought up to 20 mg in the morning and 5 mg in the evening which is supraphysiologic this will be acceptable and compensating and the sodium should return to normal. However when it comes time to taper this patient off steroids he need to be tapered down to physiologic dosage prednisone 5 mg in the morning 1 mg in the afternoon or 4 mg morning 2 mg the afternoon held there for 6 months and then taper down from there. Consultation Date/Type/Reason Admit Date/Time May 07, 2018 at 04:27 Initial Consult Date 05/07/18 Type of Consult Endocrinology Reason for Consultation Hypothyroidism; iatrogenic adrenal insufficiency; hyponatremia; ANCA positive vasculitis Requesting Provider: ALO RIDDLE Date/Time of Note DATE: 05/09/18 TIME: 13:12 24 HR Interval Summary Constitutional: no complaints Exam/Review of Systems Exam Vitals Vital Signs Date Temp Pulse Resp B/P (MAP) Pulse Ox O2 O2 Flow FiO2 Time Delivery Rate 05/09/18 109 12:08 05/09/18 98.2 17 118/79 91 11:32 (92) 05/09/18 Room Air 07:16 Intake and Output 05/08/18 05/08/18 05/09/18 1414:59 22:59 06:59 IntakeIntake Total 420 ml 400 ml BalanceBalance 420 ml 400 ml Exam No change in exam Results Result Diagram: 05/09/18 0505/09/18 0517 Results 24hrs Laboratory Tests Test 05/08/18 23:18 05/09/18 05:17 Random Cortisol 2.1 2.2 White Blood Count 6.7 Red Blood Count 2.81 L Hemoglobin 8.4 L Hematocrit 26.3 L Mean Corpuscular Volume 93.6 Mean Corpuscular Hemoglobin 29.9 Mean Corpuscular Hemoglobin Concent 31.9 L Red Cell Distribution Width 19.8 H Platelet Count 177 Mean Platelet Volume 8.5 Immature Granulocytes % 4.200 H Neutrophils % 69.3 Lymphocytes % 18.5 Monocytes % 5.3 Eosinophils % 2.1 Basophils % 0.6 Nucleated Red Blood Cells % 0.0 Immature Granulocytes # 0.280 H Neutrophils # 4.6 Lymphocytes # 1.2 Monocytes # 0.4 Eosinophils # 0.1 Basophils # 0.0 Nucleated Red Blood Cells # 0.0 Sodium Level 132 L Potassium Level 4.4 Chloride Level 96 L Carbon Dioxide Level 30 Anion Gap 6 Blood Urea Nitrogen 54 H Creatinine 3.34 H Est Glomerular Filtrat Rate mL/min 14 L Glucose Level 83 # Calcium Level 8.8 Phosphorus Level 3.4 Magnesium Level 1.9 Medications Medication Current Medications IV Flush (NS 3 ml) 3 ml PER PROTOCOL IV ; Start 05/07/18 at 05:00 Ondansetron HCl (Zofran Inj) 4 mg Q6H PRN IV NAUSEA/VOMITING; Start 05/07/18 at 05:00 Acetaminophen (Tylenol Tab) 650 mg Q6H PRN PO .PAIN 1-3 OR TEMP; Start 05/07/18 at 05:00 Heparin Sodium (Porcine) (Heparin (5000 Units/1ml)) 5,000 unit Q12 SC Last administered on 05/09/18at 09:05; Admin Dose 5,000 UNIT; Start 05/07/18 at 09:00 Albuterol/ Ipratropium (Duoneb) 3 ml Q2H RESP THERAPY PRN HHN SHORTNESS OF BREATH; Start 05/07/18 at 05:00 Amlodipine Besylate (Norvasc) 10 mg DAILY PO Last administered on 05/09/18at 08:58; Admin Dose 10 MG; Start 05/07/18 at 09:00 Pantoprazole (Protonix Tab) 40 mg AC BREAKFAST PO Last administered on 05/09/18at 05:28; Admin Dose 40 MG; Start 05/07/18 at 07:00 Amoxicillin/ Clavulanate Potassium (Augmentin) 875 mg BID PO Last administered on 05/09/18at 08:58; Admin Dose 875 MG; Start 05/07/18 at 21:00; Stop 05/17/18 at 20:59 Levothyroxine Sodium (Synthroid) 88 mcg AC BREAKFAST PO Last administered on 05/09/18 05:28; Admin Dose 88 MCG; Start 05/08/18 at 07:00 Dapsone (Dapsone) 50 mg QAM PO Last administered on 05/09/18 08:59; Admin Dose 50 MG; Start 05/08/18 at 09:00 Docusate Sodium (Colace) 250 mg DAILY PO Last administered on 05/09/18 08:58; Admin Dose 250 MG; Start 05/08/18 at 09:00 Prednisone (Prednisone) 5 mg QPM PO ; Start 05/09/18 at 21:00 Prednisone (Prednisone) 20 mg QAM PO Last administered on 05/09/18 08:58; Admin Dose 20 MG; Start 05/09/18 at 09:00 GLENDY WOOD MD May 09, 2018 13:15
[2018-05-09] MEDS: predniSONE 5 MG TAB PO SCH (20:42)
[2018-05-10] VITALS (11 sets, daily range): BP systolic 107–142; BP diastolic 70–93; PULSE 67–98; RESP 16–20
[2018-05-10] MEDS: LEVOTHYROXINE 88 MCG TAB PO SCH (06:13)
[2018-05-10] MEDS: PANTOPRAZOLE (EC) 40 MG TAB PO SCH (06:13)
[2018-05-10] MEDS: predniSONE 20 MG TAB PO SCH (08:03)
[2018-05-10] MEDS: AMLODIPINE 10 MG TAB PO SCH (08:04)
[2018-05-10] MEDS: DOCUSATE SODIUM 250 MG CAP PO SCH (08:04)
[2018-05-10] MEDS: AMOXICILLIN/CLAV 875 MG TAB PO SCH ×2 (08:04→20:27)
[2018-05-10] MEDS: DAPSONE 25 MG TABLET PO SCH (08:04)
[2018-05-10] MEDS: HEPARIN 5,000 UNIT/1 ML VIAL SC SCH ×2 (08:09→20:34)
--- NOTE | 2018-05-10 09:49 | PN ---
Date/Time of Note Date/Time of Note DATE: 05/10/18 TIME: 09:48 Assessment/Plan VTE Prophylaxis Risk score (from Ns)>0 risk: 1 SCD applied (from Ns): No SCD contraindicated: other Pharmacological prophylaxis: other Lines/Catheters IV Catheter Type (from [facility]): Saline Lock Urinary Cath still in place: No Assessment/Plan Hospital Course renal follow up SUBJECTIVE: The patient is stable, complaining of some mild weakness. No other events noted. Urinary output has been stable d/w Dr Briggs OBJECTIVE: HEENT: Head is normocephalic. NECK: Supple. HEART: Regular rate. LUNGS: Show diminished breath sounds at the base. ABDOMEN: Soft, nontender to palpation without rebound or guarding. EXTREMITIES: Negative for clubbing, cyanosis, no edema. DERMATOLOGIC: No rashes. MUSCULOSKELETAL: No joint effusion. NEUROLOGIC: No change in exam. MEDICATIONS: Reviewed. ASSESSMENT AND PLAN: 1. Nonoliguric acute kidney injury with previously unknown baseline creatinine. 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 The patient is status post rituximab x4, status post pulse steroids, status post plasmapheresis at outside hospital. Renal function has improved and recent baseline creatinine is around 3.4 mg/dL per patient. Currently, the patient is on prednisone 20 mg p.o. in the a.m. and 5 mg p.m. on a taper dose per outpatient screen room operator. The patient is also scheduled for future Rituxan infusion. The patient's urinalysis does show hematuria, which suggests active disease. Plan will be to continue current home regimen of prednisone and monitor renal function closely. 2. Hyponatremia, etiology is secondary to chronic kidney disease causing decreased free water urinary excretion. The patient's sodium levels have been improving. Continue free water restriction. 3. Anemia. Continue to monitor hemoglobin and hematocrit levels. 4. Mineral bone disorder. Monitor calcium and phosphorus levels. 5. Hypothyroidism. Continue Synthroid. 6. ANCA associated vasculitis. Unclear if this is granulomatous with polyangiitis or microscopic polyangiitis, i.e. renal-limited vasculitis. The patient is currently on prednisone. We will continue to monitor. Result Diagram: 05/10/18 0531 05/10/18 0531 Results 24hrs Laboratory Tests Test 05/10/18 05:31 White Blood Count 7.6 Red Blood Count 2.84 L Hemoglobin 8.6 L Hematocrit 26.6 L Mean Corpuscular Volume 93.7 Mean Corpuscular Hemoglobin 30.3 Mean Corpuscular Hemoglobin Concent 32.3 Red Cell Distribution Width 19.5 H Platelet Count 196 Mean Platelet Volume 8.6 Immature Granulocytes % 4.200 H Neutrophils % 75.9 Lymphocytes % 12.7 L Monocytes % 6.0 Eosinophils % 0.7 Basophils % 0.5 Nucleated Red Blood Cells % 0.0 Immature Granulocytes # 0.320 H Neutrophils # 5.7 Lymphocytes # 1.0 Monocytes # 0.5 Eosinophils # 0.1 Basophils # 0.0 Nucleated Red Blood Cells # 0.0 Sodium Level 132 L Potassium Level 5.4 H Chloride Level 98 Carbon Dioxide Level 27 Anion Gap 7 Blood Urea Nitrogen 57 H Creatinine 3.68 H Est Glomerular Filtrat Rate mL/min 13 L Glucose Level 98 Calcium Level 9.6 Phosphorus Level 3.4 Magnesium Level 1.9 Exam/Review of Systems Exam Vitals Vital Signs Date Temp Pulse Resp B/P (MAP) Pulse Ox O2 O2 Flow FiO2 Time Delivery Rate 05/10/18 98 08:00 05/10/18 97.9 20 142/93 90 07:33 (109) 05/09/18 Room Air 07:16 Intake and Output 05/09/18 05/09/18 05/10/18 1515:00 23:00 07:00 IntakeIntake Total 650 ml 400 ml BalanceBalance 650 ml 400 ml Results Results 24hrs Laboratory Tests Test 05/10/18 05:31 White Blood Count 7.6 Red Blood Count 2.84 L Hemoglobin 8.6 L Hematocrit 26.6 L Mean Corpuscular Volume 93.7 Mean Corpuscular Hemoglobin 30.3 Mean Corpuscular Hemoglobin Concent 32.3 Red Cell Distribution Width 19.5 H Platelet Count 196 Mean Platelet Volume 8.6 Immature Granulocytes % 4.200 H Neutrophils % 75.9 Lymphocytes % 12.7 L Monocytes % 6.0 Eosinophils % 0.7 Basophils % 0.5 Nucleated Red Blood Cells % 0.0 Immature Granulocytes # 0.320 H Neutrophils # 5.7 Lymphocytes # 1.0 Monocytes # 0.5 Eosinophils # 0.1 Basophils # 0.0 Nucleated Red Blood Cells # 0.0 Sodium Level 132 L Potassium Level 5.4 H Chloride Level 98 Carbon Dioxide Level 27 Anion Gap 7 Blood Urea Nitrogen 57 H Creatinine 3.68 H Est Glomerular Filtrat Rate mL/min 13 L Glucose Level 98 Calcium Level 9.6 Phosphorus Level 3.4 Magnesium Level 1.9 Medications Medication Current Medications IV Flush (NS 3 ml) 3 ml PER PROTOCOL IV ; Start 05/07/18 at 05:00 Ondansetron HCl (Zofran Inj) 4 mg Q6H PRN IV NAUSEA/VOMITING; Start 05/07/18 at 05:00 Acetaminophen (Tylenol Tab) 650 mg Q6H PRN PO .PAIN 1-3 OR TEMP; Start 05/07/18 at 05:00 Heparin Sodium (Porcine) (Heparin (5000 Units/1ml)) 5,000 unit Q12 SC Last administered on 05/10/18 08:09; Admin Dose 5,000 UNIT; Start 05/07/18 at 09:00 Albuterol/ Ipratropium (Duoneb) 3 ml Q2H RESP THERAPY PRN HHN SHORTNESS OF BREATH; Start 05/07/18 at 05:00 Amlodipine Besylate (Norvasc) 10 mg DAILY PO Last administered on 05/10/18 08:04; Admin Dose 10 MG; Start 05/07/18 at 09:00 Pantoprazole (Protonix Tab) 40 mg AC BREAKFAST PO Last administered on 05/10/18 06:13; Admin Dose 40 MG; Start 05/07/18 at 07:00 Amoxicillin/ Clavulanate Potassium (Augmentin) 875 mg BID PO Last administered on 05/10/18 08:04; Admin Dose 875 MG; Start 05/07/18 at 21:00; Stop 05/17/18 at 20:59 Levothyroxine Sodium (Synthroid) 88 mcg AC BREAKFAST PO Last administered on 05/10/18 06:13; Admin Dose 88 MCG; Start 05/08/18 at 07:00 Dapsone (Dapsone) 50 mg QAM PO Last administered on 05/10/18 08:04; Admin Dose 50 MG; Start 05/08/18 at 09:00 Docusate Sodium (Colace) 250 mg DAILY PO Last administered on 05/10/18 08:04; Admin Dose 250 MG; Start 05/08/18 at 09:00 Prednisone (Prednisone) 5 mg QPM PO Last administered on 05/09/18 20:42; Admin Dose 5 MG; Start 05/09/18 at 21:00 Prednisone (Prednisone) 20 mg QAM PO Last administered on 05/10/18at 08:03; Admin Dose 20 MG; Start 05/09/18 at 09:00 INOCENCIA MALAVE DO May 10, 2018 09:49
--- NOTE | 2018-05-10 13:20 | PN ---
Date/Time of Note Date/Time of Note DATE: 05/10/18 TIME: 13:03 Assessment/Plan VTE Prophylaxis Risk score (from Ns)>0 risk: 1 SCD applied (from Ns): No SCD contraindicated: other Pharmacological prophylaxis: heparin Lines/Catheters [facility] Saline Lock Urinary Cath still in place: No Assessment/Plan Hospital Course S: no new complaints, seen by renal team earlier today. O: VS - see below PE: General: A&O x3, answering questions appropriately, has good insight into disease HEENT: NC/ AT. PERRL. EOM intact Neck: supple CVS: S1, S2, RRR. no murmurs. no pain on chest wall palpation Lungs: CTA b/l. no wheezing or rhonchi Abd: soft, nontender, +BS Ext: moving all extremities skin: no rashes Neuro: No focal deficits Asessment and plan: : 57 yo F who had presented with ?headaches tremor, and sinus pressure and lethargy now managed as follows : 1. Symptomatic hyponatremia -2/2 reduced output per nephrology -Na levels improving -Monitor for now, follow BMP and renal recommendations - free water restriction per nephro 2. Sinusitis (acute) -improving, monitor, antibiotics 3. 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 The patient is status post rituximab x4, status post pulse steroids, status post plasmapheresis at outside hospital. Here tests show microscopic hematuria and mild proteinuria -Continue monitor for now, continue steroids as ordered and recommended by endocrinology and renal team 4. Poorly controlled hypothyroidism -endocrinology team following the patient -Continue Synthroid at current dose, follow-up endocrinology recommendations Result Diagram: 05/10/18 0531 05/10/18 0531 Results 24hrs Laboratory Tests Test 05/10/18 05:31 White Blood Count 7.6 Red Blood Count 2.84 L Hemoglobin 8.6 L Hematocrit 26.6 L Mean Corpuscular Volume 93.7 Mean Corpuscular Hemoglobin 30.3 Mean Corpuscular Hemoglobin Concent 32.3 Red Cell Distribution Width 19.5 H Platelet Count 196 Mean Platelet Volume 8.6 Immature Granulocytes % 4.200 H Neutrophils % 75.9 Lymphocytes % 12.7 L Monocytes % 6.0 Eosinophils % 0.7 Basophils % 0.5 Nucleated Red Blood Cells % 0.0 Immature Granulocytes # 0.320 H Neutrophils # 5.7 Lymphocytes # 1.0 Monocytes # 0.5 Eosinophils # 0.1 Basophils # 0.0 Nucleated Red Blood Cells # 0.0 Sodium Level 132 L Potassium Level 5.4 H Chloride Level 98 Carbon Dioxide Level 27 Anion Gap 7 Blood Urea Nitrogen 57 H Creatinine 3.68 H Est Glomerular Filtrat Rate mL/min 13 L Glucose Level 98 Calcium Level 9.6 Phosphorus Level 3.4 Magnesium Level 1.9 Exam/Review of Systems Exam Vitals Vital Signs Date Temp Pulse Resp B/P (MAP) Pulse Ox O2 O2 Flow FiO2 Time Delivery Rate 05/10/18 88 12:00 05/10/18 97.9 20 122/80 94 11:35 (94) 05/09/18 Room Air 07:16 Intake and Output 05/09/18 05/09/18 05/10/18 1414:59 22:59 06:59 IntakeIntake Total 650 ml 400 ml BalanceBalance 650 ml 400 ml Results Results 24hrs Laboratory Tests Test 05/10/18 05:31 White Blood Count 7.6 Red Blood Count 2.84 L Hemoglobin 8.6 L Hematocrit 26.6 L Mean Corpuscular Volume 93.7 Mean Corpuscular Hemoglobin 30.3 Mean Corpuscular Hemoglobin Concent 32.3 Red Cell Distribution Width 19.5 H Platelet Count 196 Mean Platelet Volume 8.6 Immature Granulocytes % 4.200 H Neutrophils % 75.9 Lymphocytes % 12.7 L Monocytes % 6.0 Eosinophils % 0.7 Basophils % 0.5 Nucleated Red Blood Cells % 0.0 Immature Granulocytes # 0.320 H Neutrophils # 5.7 Lymphocytes # 1.0 Monocytes # 0.5 Eosinophils # 0.1 Basophils # 0.0 Nucleated Red Blood Cells # 0.0 Sodium Level 132 L Potassium Level 5.4 H Chloride Level 98 Carbon Dioxide Level 27 Anion Gap 7 Blood Urea Nitrogen 57 H Creatinine 3.68 H Est Glomerular Filtrat Rate mL/min 13 L Glucose Level 98 Calcium Level 9.6 Phosphorus Level 3.4 Magnesium Level 1.9 Medications Medication Current Medications Ondansetron HCl (Zofran Inj) 4 mg Q6H PRN IV NAUSEA/VOMITING; Start 05/07/18 at 05:00 Acetaminophen (Tylenol Tab) 650 mg Q6H PRN PO .PAIN 1-3 OR TEMP; Start 05/07/18 at 05:00 Heparin Sodium (Porcine) (Heparin (5000 Units/1ml)) 5,000 unit Q12 SC Last administered on 05/10/18 08:09; Admin Dose 5,000 UNIT; Start 05/07/18 at 09:00 Albuterol/ Ipratropium (Duoneb) 3 ml Q2H RESP THERAPY PRN HHN SHORTNESS OF BREATH; Start 05/07/18 at 05:00 Amlodipine Besylate (Norvasc) 10 mg DAILY PO Last administered on 05/10/18 08:04; Admin Dose 10 MG; Start 05/07/18 at 09:00 Pantoprazole (Protonix Tab) 40 mg AC BREAKFAST PO Last administered on 05/10/18 06:13; Admin Dose 40 MG; Start 05/07/18 at 07:00 Amoxicillin/ Clavulanate Potassium (Augmentin) 875 mg BID PO Last administered on 05/10/18 08:04; Admin Dose 875 MG; Start 05/07/18 at 21:00; Stop 05/17/18 at 20:59 Levothyroxine Sodium (Synthroid) 88 mcg AC BREAKFAST PO Last administered on 05/10/18 06:13; Admin Dose 88 MCG; Start 05/08/18 at 07:00 Dapsone (Dapsone) 50 mg QAM PO Last administered on 05/10/18 08:04; Admin Dose 50 MG; Start 05/08/18 at 09:00 Docusate Sodium (Colace) 250 mg DAILY PO Last administered on 05/10/18 08:04; Admin Dose 250 MG; Start 05/08/18 at 09:00 Prednisone (Prednisone) 5 mg QPM PO Last administered on 05/09/18 20:42; Admin Dose 5 MG; Start 05/09/18 at 21:00 Prednisone (Prednisone) 20 mg QAM PO Last administered on 05/10/18 08:03; Admin Dose 20 MG; Start 05/09/18 at 09:00 MINDA JOHNSON 16, 2019 13:13
[2018-05-10] MEDS ORDERED: NA POLYST SULFON 15 GM/60 ML BTL PO ONE (13:30)
[2018-05-10] MEDS ORDERED: KAYPO PO (15:52)
--- NOTE | 2018-05-10 17:09 | CONS ---
Assessment/Plan Assessment/Plan Problems: (1) Iatrogenic adrenal insufficiency Status: Chronic Comment: On prednisone slow taper. (2) Hyponatremia Status: Acute Comment: A notable improvement with levels near normal. Can decrease fluid restrictions somewhat. (3) Hypothyroidism Status: Chronic Comment: On replacement therapy. Dose has been adjusted Qualifiers: Hypothyroidism type: acquired Qualified Codes: E03.9 - Hypothyroidism, unspecified Consultation Date/Type/Reason Admit Date/Time May 07, 2018 at 04:27 Initial Consult Date 05/07/18 Type of Consult Endocrine Reason for Consultation Hyponatremia, hypothyroidism, Iatrogenic adrenal insufficiency. Requesting Provider: ALO RIDDLE Date/Time of Note DATE: 05/10/18 TIME: 17:03 24 HR Interval Summary Free Text/Dictation Feels better. Exam/Review of Systems Exam Vitals Vital Signs Date Temp Pulse Resp B/P (MAP) Pulse Ox O2 O2 Flow FiO2 Time Delivery Rate 05/10/18 86 16:00 05/10/18 98.7 20 122/83 91 15:45 (96) 05/09/18 Room Air 07:16 Intake and Output 05/09/18 05/09/18 05/10/18 1414:59 22:59 06:59 IntakeIntake Total 650 ml 400 ml BalanceBalance 650 ml 400 ml Constitutional: alert, oriented Head: other (cushingoid facies (mild)) Neck: supple Respiratory: clear to auscultation Cardiovascular: regular rate and rhythm Additional Comments Labs reviewed Results Result Diagram: 05/10/18 0531 05/10/18 0531 Results 24hrs Laboratory Tests Test 05/10/18 05:31 White Blood Count 7.6 Red Blood Count 2.84 L Hemoglobin 8.6 L Hematocrit 26.6 L Mean Corpuscular Volume 93.7 Mean Corpuscular Hemoglobin 30.3 Mean Corpuscular Hemoglobin Concent 32.3 Red Cell Distribution Width 19.5 H Platelet Count 196 Mean Platelet Volume 8.6 Immature Granulocytes % 4.200 H Neutrophils % 75.9 Lymphocytes % 12.7 L Monocytes % 6.0 Eosinophils % 0.7 Basophils % 0.5 Nucleated Red Blood Cells % 0.0 Immature Granulocytes # 0.320 H Neutrophils # 5.7 Lymphocytes # 1.0 Monocytes # 0.5 Eosinophils # 0.1 Basophils # 0.0 Nucleated Red Blood Cells # 0.0 Sodium Level 132 L Potassium Level 5.4 H Chloride Level 98 Carbon Dioxide Level 27 Anion Gap 7 Blood Urea Nitrogen 57 H Creatinine 3.68 H Est Glomerular Filtrat Rate mL/min 13 L Glucose Level 98 Calcium Level 9.6 Phosphorus Level 3.4 Magnesium Level 1.9 Medications Medication Current Medications Ondansetron HCl (Zofran Inj) 4 mg Q6H PRN IV NAUSEA/VOMITING; Start 05/07/18 at 05:00 Acetaminophen (Tylenol Tab) 650 mg Q6H PRN PO .PAIN 1-3 OR TEMP; Start 05/07/18 at 05:00 Heparin Sodium (Porcine) (Heparin (5000 Units/1ml)) 5,000 unit Q12 SC Last administered on 05/10/18 08:09; Admin Dose 5,000 UNIT; Start 05/07/18 at 09:00 Albuterol/ Ipratropium (Duoneb) 3 ml Q2H RESP THERAPY PRN HHN SHORTNESS OF BREATH; Start 05/07/18 at 05:00 Amlodipine Besylate (Norvasc) 10 mg DAILY PO Last administered on 05/10/18 08:04; Admin Dose 10 MG; Start 05/07/18 at 09:00 Pantoprazole (Protonix Tab) 40 mg AC BREAKFAST PO Last administered on 05/10/18 06:13; Admin Dose 40 MG; Start 05/07/18 at 07:00 Amoxicillin/ Clavulanate Potassium (Augmentin) 875 mg BID PO Last administered on 05/10/18 08:04; Admin Dose 875 MG; Start 05/07/18 at 21:00; Stop 05/17/18 at 20:59 Levothyroxine Sodium (Synthroid) 88 mcg AC BREAKFAST PO Last administered on 05/10/18 06:13; Admin Dose 88 MCG; Start 05/08/18 at 07:00 Dapsone (Dapsone) 50 mg QAM PO Last administered on 05/10/18 08:04; Admin Dose 50 MG; Start 05/08/18 at 09:00 Docusate Sodium (Colace) 250 mg DAILY PO Last administered on 05/10/18 08:04; Admin Dose 250 MG; Start 05/08/18 at 09:00 Prednisone (Prednisone) 5 mg QPM PO Last administered on 05/09/18 20:42; Admin Dose 5 MG; Start 05/09/18 at 21:00 Prednisone (Prednisone) 20 mg QAM PO Last administered on 05/10/18at 08:03; Admin Dose 20 MG; Start 05/09/18 at 09:00 GUADALUPE MILNER MD May 10, 2018 17:09
[2018-05-10] MEDS: predniSONE 5 MG TAB PO SCH (20:27)
[2018-05-11] VITALS (11 sets, daily range): BP systolic 106–130; BP diastolic 73–90; PULSE 68–102; RESP 16–18
[2018-05-11] MEDS: LEVOTHYROXINE 88 MCG TAB PO SCH (06:07)
[2018-05-11] MEDS: PANTOPRAZOLE (EC) 40 MG TAB PO SCH (06:07)
[2018-05-11] MEDS ORDERED: NA POLYST SULFON 15 GM/60 ML BTL PO ONE (08:00)
[2018-05-11] MEDS: HEPARIN 5,000 UNIT/1 ML VIAL SC SCH ×2 (08:00→20:40)
[2018-05-11] MEDS: DAPSONE 25 MG TABLET PO SCH (08:02)
[2018-05-11] MEDS: predniSONE 20 MG TAB PO SCH (08:02)
[2018-05-11] MEDS: DOCUSATE SODIUM 250 MG CAP PO SCH (08:02)
[2018-05-11] MEDS: AMOXICILLIN/CLAV 875 MG TAB PO SCH ×2 (08:02→20:26)
[2018-05-11] MEDS: AMLODIPINE 10 MG TAB PO SCH (08:03)
--- NOTE | 2018-05-11 10:15 | PN ---
Date/Time of Note Date/Time of Note DATE: 05/11/18 TIME: 10:14 Assessment/Plan VTE Prophylaxis Risk score (from Ns)>0 risk: 1 [place] [facility] [place] contraindicated: other Pharmacological prophylaxis: heparin Lines/Catheters IV Catheter Type (from [facility]): Saline Lock Urinary Cath still in place: No Assessment/Plan Hospital Course S: No acute events overnight. O: VS - see below PE: General: A&O x3, answering questions appropriately, has good insight into disease HEENT: NC/ AT. PERRL. EOM intact Neck: supple CVS: S1, S2, RRR. no murmurs. no pain on chest wall palpation Lungs: CTA b/l. no wheezing or rhonchi Abd: soft, nontender, +BS Ext: moving all extremities skin: no rashes Neuro: No focal deficits Asessment and plan: 57 yo F who had presented with ?headaches tremor, and sinus pressure and lethargy now managed as follows : 1. Symptomatic hyponatremia -2/2 reduced output per nephrology -Na levels improving - Monitor for now, follow BMP and renal recommendations - free water restriction per nephro 2. Sinusitis (acute) -improving, monitor, antibiotics 3. 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 The patient is status post rituximab x4, status post pulse steroids, status post plasmapheresis at outside hospital. Here tests show microscopic hematuria and mild proteinuria -Continue monitor for now, continue steroids as ordered and recommended by endocrinology and renal team 4. Poorly controlled hypothyroidism -endocrinology team following the patient -Continue Synthroid at current dose, follow-up endocrinology recommendations Result Diagram: 05/11/18 0502 05/11/18 0502 Results 24hrs Laboratory Tests Test 05/11/18 05:02 White Blood Count 8.2 Red Blood Count 2.79 L Hemoglobin 8.4 L Hematocrit 26.4 L Mean Corpuscular Volume 94.6 Mean Corpuscular Hemoglobin 30.1 Mean Corpuscular Hemoglobin Concent 31.8 L Red Cell Distribution Width 19.9 H Platelet Count 210 Mean Platelet Volume 9.1 Immature Granulocytes % 6.300 H Neutrophils % Lymphocytes % Monocytes % Eosinophils % Basophils % Nucleated Red Blood Cells % 0.0 Immature Granulocytes # 0.520 H Neutrophils # Lymphocytes # Monocytes # Eosinophils # Basophils # Nucleated Red Blood Cells # Sodium Level 133 L Potassium Level 5.8 H Chloride Level 97 Carbon Dioxide Level 29 Anion Gap 7 Blood Urea Nitrogen 64 H Creatinine 3.43 H Est Glomerular Filtrat Rate mL/min 14 L Glucose Level 111 Calcium Level 9.5 Exam/Review of Systems Exam Vitals Vital Signs Date Temp Pulse Resp B/P (MAP) Pulse Ox O2 O2 Flow FiO2 Time Delivery Rate 05/11/18 92 08:05 05/11/18 98.2 16 125/77 93 07:51 (93) 05/09/18 Room Air 07:16 Intake and Output 05/10/18 05/10/18 05/11/18 1515:00 23:00 07:00 IntakeIntake Total 750 ml 200 ml BalanceBalance 750 ml 200 ml Results Results 24hrs Laboratory Tests Test 05/11/18 05:02 White Blood Count 8.2 Red Blood Count 2.79 L Hemoglobin 8.4 L Hematocrit 26.4 L Mean Corpuscular Volume 94.6 Mean Corpuscular Hemoglobin 30.1 Mean Corpuscular Hemoglobin Concent 31.8 L Red Cell Distribution Width 19.9 H Platelet Count 210 Mean Platelet Volume 9.1 Immature Granulocytes % 6.300 H Neutrophils % Lymphocytes % Monocytes % Eosinophils % Basophils % Nucleated Red Blood Cells % 0.0 Immature Granulocytes # 0.520 H Neutrophils # Lymphocytes # Monocytes # Eosinophils # Basophils # Nucleated Red Blood Cells # Sodium Level 133 L Potassium Level 5.8 H Chloride Level 97 Carbon Dioxide Level 29 Anion Gap 7 Blood Urea Nitrogen 64 H Creatinine 3.43 H Est Glomerular Filtrat Rate mL/min 14 L Glucose Level 111 Calcium Level 9.5 Medications Medication Current Medications Ondansetron HCl (Zofran Inj) 4 mg Q6H PRN IV NAUSEA/VOMITING; Start 05/07/18 at 05:00 Acetaminophen (Tylenol Tab) 650 mg Q6H PRN PO .PAIN 1-3 OR TEMP; Start 05/07/18 at 05:00 Heparin Sodium (Porcine) (Heparin (5000 Units/1ml)) 5,000 unit Q12 SC Last administered on 05/11/18at 08:00; Admin Dose 5,000 UNIT; Start 05/07/18 at 09:00 Albuterol/ Ipratropium (Duoneb) 3 ml Q2H RESP THERAPY PRN HHN SHORTNESS OF BR EATH; Start 05/07/18 at 05:00 Amlodipine Besylate (Norvasc) 10 mg DAILY PO Last administered on 05/11/18 08:03; Admin Dose 10 MG; Start 05/07/18 at 09:00 Pantoprazole (Protonix Tab) 40 mg AC BREAKFAST PO Last administered on 05/11/18 06:07; Admin Dose 40 MG; Start 05/07/18 at 07:00 Amoxicillin/ Clavulanate Potassium (Augmentin) 875 mg BID PO Last administered on 05/11/18 08:02; Admin Dose 875 MG; Start 05/07/18 at 21:00; Stop 05/17/18 at 20:59 Levothyroxine Sodium (Synthroid) 88 mcg AC BREAKFAST PO Last administered on 05/11/18 06:07; Admin Dose 88 MCG; Start 05/08/18 at 07:00 Dapsone (Dapsone) 50 mg QAM PO Last administered on 05/11/18 08:02; Admin Dose 50 MG; Start 05/08/18 at 09:00 Docusate Sodium (Colace) 250 mg DAILY PO Last administered on 05/11/18 08:02; Admin Dose 250 MG; Start 05/08/18 at 09:00 Prednisone (Prednisone) 5 mg QPM PO Last administered on 05/10/18 20:27; Admin Dose 5 MG; Start 05/09/18 at 21:00 Prednisone (Prednisone) 20 mg QAM PO Last administered on 05/11/18 08:02; Admin Dose 20 MG; Start 05/09/18 at 09:00 MINDA JOHNSON May 11, 2018 10:15
--- NOTE | 2018-05-11 10:41 | PN ---
Date/Time of Note Date/Time of Note DATE: 05/11/18 TIME: 10:40 Assessment/Plan VTE Prophylaxis Risk score (from Ns)>0 risk: 1 SCD applied (from [facility]): No SCD contraindicated: other Pharmacological prophylaxis: other Lines/Catheters [facility]ter Type (from [facility] Saline Lock Urinary Cath still in place: No Assessment/Plan Hospital Course renal follow up SUBJECTIVE: The patient is stable, complaining of some mild weakness. No other events noted. Urinary output has been stable d/w Dr Briggs hyperkalemia noted OBJECTIVE: HEENT: Head is normocephalic. NECK: Supple. HEART: Regular rate. LUNGS: Show diminished breath sounds at the base. ABDOMEN: Soft, nontender to palpation without rebound or guarding. EXTREMITIES: Negative for clubbing, cyanosis, no edema. DERMATOLOGIC: No rashes. MUSCULOSKELETAL: No joint effusion. NEUROLOGIC: No change in exam. MEDICATIONS: Reviewed. ASSESSMENT AND PLAN: 1. Nonoliguric acute kidney injury with previously unknown baseline creatinine. 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 The patient is status post rituximab x4, status post pulse steroids, status post plasmapheresis at outside hospital. Renal function has improved and recent baseline creatinine is around 3.4 mg/dL per patient. Currently, the patient is on prednisone 20 mg p.o. in the a.m. and 5 mg p.m. 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 The patient is also scheduled for future Rituxan infusion. The patient's urinalysis does show hematuria, which suggests active disease. Plan will be to continue current home regimen of prednisone and monitor renal function closely. will give kayaxlate and bumex for hyperk 2. Hyponatremia, etiology is secondary to chronic kidney disease causing decreased free water urinary excretion. The patient's sodium levels have been improving. Continue free water restriction. 3. Anemia. Continue to monitor hemoglobin and hematocrit levels. 4. Mineral bone disorder. Monitor calcium and phosphorus levels. 5. Hypothyroidism. Continue Synthroid. 6. ANCA associated vasculitis. Unclear if this is granulomatous with polyangiitis or microscopic polyangiitis, i.e. renal-limited vasculitis. The patient is currently on prednisone. We will continue to monitor. Result Diagram: 05/11/18 0502 05/11/18 0502 Results 24hrs Laboratory Tests Test 05/11/18 05:02 White Blood Count 8.2 Red Blood Count 2.79 L Hemoglobin 8.4 L Hematocrit 26.4 L Mean Corpuscular Volume 94.6 Mean Corpuscular Hemoglobin 30.1 Mean Corpuscular Hemoglobin Concent 31.8 L Red Cell Distribution Width 19.9 H Platelet Count 210 Mean Platelet Volume 9.1 Immature Granulocytes % 6.300 H Neutrophils % Segmented Neutrophils % (Manual) 77 Band Neutrophils % (Manual) 1 Lymphocytes % Lymphocytes % (Manual) 9 L Monocytes % Monocytes % (Manual) 6 Eosinophils % Eosinophils % (Manual) 1 Basophils % Metamyelocytes % (manual) 1 H Myelocytes % (Manual) 4 H Promyelocytes % (Manual) 1 H Nucleated Red Blood Cells % 0.0 Immature Granulocytes # 0.520 H Neutrophils # Neutrophils # (Manual) 6.3 Band Neutrophils # 0.0 Lymphocytes (Manual) 0.7 L Lymphocytes # Monocytes # Monocytes # (Manual) 0.4 Eosinophils # Basophils # Metamyelocytes # 0.0 Myelocytes # 0.3 H Promyelocytes # 0.0 Nucleated Red Blood Cells # Platelet Estimate NORMAL Polychromasia 3+ Poikilocytosis 1+ Anisocytosis 2+ Microcytosis 2+ Target Cells 1+ Ovalocytes 1+ Sodium Level 133 L Potassium Level 5.8 H Chloride Level 97 Carbon Dioxide Level 29 Anion Gap 7 Blood Urea Nitrogen 64 H Creatinine 3.43 H Est Glomerular Filtrat Rate mL/min 14 L Glucose Level 111 Calcium Level 9.5 Exam/Review of Systems Exam Vitals Vital Signs Date Temp Pulse Resp B/P (MAP) Pulse Ox O2 O2 Flow FiO2 Time Delivery Rate 05/11/18 92 08:05 05/11/18 98.2 16 125/77 93 07:51 (93) 05/09/18 Room Air 07:16 Intake and Output 05/10/18 05/10/18 05/11/18 1515:00 23:00 07:00 IntakeIntake Total 750 ml 200 ml BalanceBalance 750 ml 200 ml Results Results 24hrs Laboratory Tests Test 05/11/18 05:02 White Blood Count 8.2 Red Blood Count 2.79 L Hemoglobin 8.4 L Hematocrit 26.4 L Mean Corpuscular Volume 94.6 Mean Corpuscular Hemoglobin 30.1 Mean Corpuscular Hemoglobin Concent 31.8 L Red Cell Distribution Width 19.9 H Platelet Count 210 Mean Platelet Volume 9.1 Immature Granulocytes % 6.300 H Neutrophils % Segmented Neutrophils % (Manual) 77 Band Neutrophils % (Manual) 1 Lymphocytes % Lymphocytes % (Manual) 9 L Monocytes % Monocytes % (Manual) 6 Eosinophils % Eosinophils % (Manual) 1 Basophils % Metamyelocytes % (manual) 1 H Myelocytes % (Manual) 4 H Promyelocytes % (Manual) 1 H Nucleated Red Blood Cells % 0.0 Immature Granulocytes # 0.520 H Neutrophils # Neutrophils # (Manual) 6.3 Band Neutrophils # 0.0 Lymphocytes (Manual) 0.7 L Lymphocytes # Monocytes # Monocytes # (Manual) 0.4 Eosinophils # Basophils # Metamyelocytes # 0.0 Myelocytes # 0.3 H Promyelocytes # 0.0 Nucleated Red Blood Cells # Platelet Estimate NORMAL Polychromasia 3+ Poikilocytosis 1+ Anisocytosis 2+ Microcytosis 2+ Target Cells 1+ Ovalocytes 1+ Sodium Level 133 L Potassium Level 5.8 H Chloride Level 97 Carbon Dioxide Level 29 Anion Gap 7 Blood Urea Nitrogen 64 H Creatinine 3.43 H Est Glomerular Filtrat Rate mL/min 14 L Glucose Level 111 Calcium Level 9.5 Medications Medication Current Medications Ondansetron HCl (Zofran Inj) 4 mg Q6H PRN IV NAUSEA/VOMITING; Start 05/07/18 at 05:00 Acetaminophen (Tylenol Tab) 650 mg Q6H PRN PO .PAIN 1-3 OR TEMP; Start 05/07/18 at 05:00 Heparin Sodium (Porcine) (Heparin (5000 Units/1ml)) 5,000 unit Q12 SC Last administered on 05/11/18at 08:00; Admin Dose 5,000 UNIT; Start 05/07/18 at 09:00 Albuterol/ Ipratropium (Duoneb) 3 ml Q2H RESP THERAPY PRN HHN SHORTNESS OF BREATH; Start 05/07/18 at 05:00 Amlodipine Besylate (Norvasc) 10 mg DAILY PO Last administered on 05/11/18at 08:03; Admin Dose 10 MG; Start 05/07/18 at 09:00 Pantoprazole (Protonix Tab) 40 mg AC BREAKFAST PO Last administered on 05/11at 06:07; Admin Dose 40 MG; Start 05/07/18 at 07:00 Amoxicillin/ Clavulanate Potassium (Augmentin) 875 mg BID PO Last administered on 05/11/18 08:02; Admin Dose 875 MG; Start 05/07/18 at 21:00; Stop 05/17/18 at 20:59 Levothyroxine Sodium (Synthroid) 88 mcg AC BREAKFAST PO Last administered on 05/11/18 06:07; Admin Dose 88 MCG; Start 05/08/18 at 07:00 Dapsone (Dapsone) 50 mg QAM PO Last administered on 05/11/18at 08:02; Admin Dose 50 MG; Start 05/08/18 at 09:00 Docusate Sodium (Colace) 250 mg DAILY PO Last administered on 05/11/18 08:02; Admin Dose 250 MG; Start 05/08/18 at 09:00 Prednisone (Prednisone) 5 mg QPM PO Last administered on 05/10/18at 20:27; Admin Dose 5 MG; Start 05/09/18 at 21:00 Prednisone (Prednisone) 20 mg QAM PO Last administered on 05/11/18at 08:02; Admin Dose 20 MG; Start 05/09/18 at 09:00 Sodium Polystyrene Sulfonate (Kayexalate) 15 gm MoFr@0900 PO ; Start 05/12/18 at 09:00 INOCENCIA MALAVE DO May 11, 2018 10:41
[2018-05-11] MEDS ORDERED: BUMETANIDE 1 MG INJ IV ONE (11:00)
--- NOTE | 2018-05-11 12:07 | CONS ---
Assessment/Plan Assessment/Plan Problems: (1) Hyponatremia Status: Acute Comment: Further improvement with sodium at 3.3mmol/L (2) Iatrogenic adrenal insufficiency Status: Chronic Comment: Continue Prednisone at current dose with plan to taper very slowly to physiologic dose. (3) Hypothyroidism Status: Chronic Comment: No new issues. Qualifiers: Hypothyroidism type: acquired Qualified Codes: E03.9 - Hypothyroidism, unspecified Consultation Date/Type/Reason Admit Date/Time May 07, 2018 at 04:27 Initial Consult Date 05/07/18 Type of Consult Endocrine Reason for Consultation Hyponatremia, Hypothyroidism, Iatrogenic Adrenal Insufficiency Requesting Provider: ALO RIDDLE Date/Time of Note DATE: 05/11/18 TIME: 12:04 24 HR Interval Summary Free Text/Dictation No acute events overnight. Exam/Review of Systems Exam Vitals Vital Signs Date Temp Pulse Resp B/P (MAP) Pulse Ox O2 O2 Flow FiO2 Time Delivery Rate 05/11/18 98.6 80 16 106/73 94 11:19 (84) 05/09/18 Room Air 07:16 Intake and Output 05/10/18 05/10/18 05/11/18 1515:00 23:00 07:00 IntakeIntake Total 750 ml 200 ml BalanceBalance 750 ml 200 ml Exam Family at bedside Constitutional: alert, oriented, other (cushingoid facies (mild)) Additional Comments LAbs reviewed Results Result Diagram: 05/11/18 0502 05/11/18 0502 Results 24hrs Laboratory Tests Test 05/11/18 05:02 White Blood Count 8.2 Red Blood Count 2.79 L Hemoglobin 8.4 L Hematocrit 26.4 L Mean Corpuscular Volume 94.6 Mean Corpuscular Hemoglobin 30.1 Mean Corpuscular Hemoglobin Concent 31.8 L Red Cell Distribution Width 19.9 H Platelet Count 210 Mean Platelet Volume 9.1 Immature Granulocytes % 6.300 H Neutrophils % Segmented Neutrophils % (Manual) 77 Band Neutrophils % (Manual) 1 Lymphocytes % Lymphocytes % (Manual) 9 L Monocytes % Monocytes % (Manual) 6 Eosinophils % Eosinophils % (Manual) 1 Basophils % Metamyelocytes % (manual) 1 H Myelocytes % (Manual) 4 H Promyelocytes % (Manual) 1 H Nucleated Red Blood Cells % 0.0 Immature Granulocytes # 0.520 H Neutrophils # Neutrophils # (Manual) 6.3 Band Neutrophils # 0.0 Lymphocytes (Manual) 0.7 L Lymphocytes # Monocytes # Monocytes # (Manual) 0.4 Eosinophils # Basophils # Metamyelocytes # 0.0 Myelocytes # 0.3 H Promyelocytes # 0.0 Nucleated Red Blood Cells # Platelet Estimate NORMAL Polychromasia 3+ Poikilocytosis 1+ Anisocytosis 2+ Microcytosis 2+ Target Cells 1+ Ovalocytes 1+ Sodium Level 133 L Potassium Level 5.8 H Chloride Level 97 Carbon Dioxide Level 29 Anion Gap 7 Blood Urea Nitrogen 64 H Creatinine 3.43 H Est Glomerular Filtrat Rate mL/min 14 L Glucose Level 111 Calcium Level 9.5 Medications Medication Current Medications Ondansetron HCl (Zofran Inj) 4 mg Q6H PRN IV NAUSEA/VOMITING; Start 05/07/18 at 05:00 Acetaminophen (Tylenol Tab) 650 mg Q6H PRN PO .PAIN 1-3 OR TEMP; Start 05/07/18 at 05:00 Heparin Sodium (Porcine) (Heparin (5000 Units/1ml)) 5,000 unit Q12 SC Last administered on 05/11/18at 08:00; Admin Dose 5,000 UNIT; Start 05/07/18 at 09:00 Albuterol/ Ipratropium (Duoneb) 3 ml Q2H RESP THERAPY PRN HHN SHORTNESS OF BREATH; Start 05/07/18 at 05:00 Amlodipine Besylate (Norvasc) 10 mg DAILY PO Last administered on 05/11/18at 08 :03; Admin Dose 10 MG; Start 05/07/18 at 09:00 Pantoprazole (Protonix Tab) 40 mg AC BREAKFAST PO Last administered on 05/11/18at 06:07; Admin Dose 40 MG; Start 05/07/18 at 07:00 Amoxicillin/ Clavulanate Potassium (Augmentin) 875 mg BID PO Last administered on 05/11/18at 08:02; Admin Dose 875 MG; Start 05/07/18 at 21:00; Stop 05/17/18 at 20:59 Levothyroxine Sodium (Synthroid) 88 mcg AC BREAKFAST PO Last administered on 05/11/18at 06:07; Admin Dose 88 MCG; Start 05/08/18 at 07:00 Dapsone (Dapsone) 50 mg QAM PO Last administered on 05/11/18at 08:02; Admin Dose 50 MG; Start 05/08/18 at 09:00 Docusate Sodium (Colace) 250 mg DAILY PO Last administered on 05/11/18 08:02; Admin Dose 250 MG; Start 05/08/18 at 09:00 Prednisone (Prednisone) 5 mg QPM PO Last administered on 05/10/18 20:27; Admin Dose 5 MG; Start 05/09/18 at 21:00 Prednisone (Prednisone) 20 mg QAM PO Last administered on 05/11/18 08:02; Admin Dose 20 MG; Start 05/09/18 at 09:00 Sodium Polystyrene Sulfonate (Kayexalate) 15 gm MoFr@0900 PO ; Start 05/12/18 at 09:00 GUADALUPE MILNER MD May 11, 2018 12:07
[2018-05-11] MEDS: predniSONE 5 MG TAB PO SCH (20:26)
[2018-05-12] VITALS (10 sets, daily range): BP systolic 119–139; BP diastolic 68–94; PULSE 68–103; RESP 17–18
[2018-05-12] MEDS: LEVOTHYROXINE 88 MCG TAB PO SCH (06:06)
[2018-05-12] MEDS: PANTOPRAZOLE (EC) 40 MG TAB PO SCH (06:06)
[2018-05-12] MEDS: AMOXICILLIN/CLAV 875 MG TAB PO SCH ×2 (08:25→20:43)
[2018-05-12] MEDS: DOCUSATE SODIUM 250 MG CAP PO SCH (08:25)
[2018-05-12] MEDS: AMLODIPINE 10 MG TAB PO SCH (08:26)
[2018-05-12] MEDS: predniSONE 20 MG TAB PO SCH (08:26)
[2018-05-12] MEDS: HEPARIN 5,000 UNIT/1 ML VIAL SC SCH ×2 (08:47→20:50)
--- NOTE | 2018-05-12 08:56 | PN ---
DATE: 05/12/2018 SUBJECTIVE: The patient is stable. No fevers, no chills, no nausea, vomiting. OBJECTIVE: VITAL SIGNS: Blood pressure is 134/93, respiration 18, pulse 73, temperature 98.3. HEENT: Head is normocephalic. NECK: Supple. HEART: Regular rate. LUNGS: Show diminished breath sounds at the base. ABDOMEN: Soft, nontender to palpation without rebound or guarding. EXTREMITIES: Negative for clubbing, cyanosis, no edema. DERMATOLOGIC: No rashes. MUSCULOSKELETAL: No joint effusion. NEUROLOGIC: No change in exam. MEDICATIONS: Reviewed. LABORATORY DATA: Shows a sodium 135, potassium 4.5, chloride 94, BUN 65, creatinine 3.42. White cou nt 7.3, hemoglobin 8.1, platelet count is 195. ASSESSMENT AND PLAN: 1. Nonoliguric acute kidney injury with previously unknown baseline creatinine. The patient's most recent baseline creatinine is around 3.3 mg/dL per patient. Etiology of current acute kidney injury was secondary to ANCA associated vasculitis. The patient is status post rituximab x4, status post st eroids, status post plasmapheresis at outside hospital. The patient's renal function has improved an d recent baseline creatinine is around 3.4 mg/dL. Etiology of current acute and during his hospital course is likely due to hemodynamics. The patient's renal function now appears to be back to baselin e. We will continue current medical management. Continue prednisone 20 mg p.o. in a.m. and 5 mg in the p.m. being tapered off by an outpatient neurocritical care physician. Patient scheduled for future Rituxan infus ion in approximately 2 weeks. Would otherwise continue to renally dose meds, avoid nephrotoxins. 2. Hyperkalemia. The patient is status post Kayexalate, status post Bumex, potassium levels improve d. Continue renal diet. 3. Hyponatremia, etiology secondary to chronic kidney disease causing decreased free water urinary e xcretion, improved. Continue to monitor. 4. Anemia. Monitor hemoglobin and hematocrit levels. 5. Mineral bone disorder. Monitor calcium and phosphatase levels. 6. Hypothyroidism. Continue Synthroid. 7. ANCA associated vasculitis. Unclear if this is granulomatous with polyangiitis or microscopic po lyangiitis i.e., renal-limited vasculitis. The patient is currently on prednisone and will continue current treatment plan. Dictated By: KAYLIN BRADY/KEVIN Conf#: [id number] DID#: [id number] CC: MINDA JOHNSON; RODRIGO WU MD;*End*
[2018-05-12] MEDS ORDERED: NA POLYST SULFON 15 GM/60 ML BTL PO SCH (09:00)
--- NOTE | 2018-05-12 10:32 | CONS ---
Assessment/Plan Assessment/Plan Problems: (1) Hypothyroidism Status: Chronic Comment: Recheck labs tomorrow morning. While still early for the TSH to have equilibrated we should know for moving in the right direction Qualifiers: Hypothyroidism type: acquired Qualified Codes: E03.9 - Hypothyroidism, unspecified (2) Iatrogenic adrenal insufficiency Status: Chronic Comment: On super physiologic replacement dosages of steroids the supraphysiologic components for the ankle positive vasculitis. Continue t reatment. When we bring it down to physiologic I would recommend using for in the morning 2 in the afternoon and holding it there for 6 months before further tapering (3) Hyponatremia Status: Acute Comment: Resolved (4) ANCA-positive vasculitis Status: Chronic Comment: As per primary team and nephrology (5) Stage 2 acute kidney injury Status: Chronic Comment: Relatively stable but there is still evidence of activity in the renal disease Consultation Date/Type/Reason Admit Date/Time May 07, 2018 at 04:27 Initial Consult Date 05/07/18 Type of Consult Endocrinology Reason for Consultation Hypothyroidism; iatrogenic adrenal insufficiency; ANCA positive vasculitis Requesting Provider: ALO RIDDLE Date/Time of Note DATE: 05/12/18 TIME: 10:30 24 HR Interval Summary Free Text/Dictation No changes Exam/Review of Systems Exam Vitals Vital Signs Date Temp Pulse Resp B/P (MAP) Pulse Ox O2 O2 Flow FiO2 Time Delivery Rate 05/12/18 88 08:42 05/12/18 98.3 18 134/93 93 Room Air 07:07 (107) Intake and Output 05/11/18 05/11/18 05/12/18 1515:00 23:00 07:00 IntakeIntake Total 800 ml 560 ml BalanceBalance 800 ml 560 ml Exam No change in examination Results Result Diagram: 05/12/18 0507 05/12/18 0507 Results 24hrs Laboratory Tests Test 05/12/18 05:07 White Blood Count 7.3 Red Blood Count 2.66 L Hemoglobin 8.1 L Hematocrit 25.2 L Mean Corpuscular Volume 94.7 Mean Corpuscular Hemoglobin 30.5 Mean Corpuscular Hemoglobin Concent 32.1 Red Cell Distribution Width 19.7 H Platelet Count 195 Mean Platelet Volume 8.6 Immature Granulocytes % 6.600 H Neutrophils % 72.7 Lymphocytes % 13.9 L Monocytes % 6.1 Eosinophils % 0.3 Basophils % 0.4 Nucleated Red Blood Cells % 0.0 Immature Granulocytes # 0.480 H Neutrophils # 5.3 Lymphocytes # 1.0 Monocytes # 0.5 Eosinophils # 0.0 Basophils # 0.0 Nucleated Red Blood Cells # 0.0 Sodium Level 135 Potassium Level 4.5 Chloride Level 94 L Carbon Dioxide Level 31 Anion Gap 10 Blood Urea Nitrogen 65 H Creatinine 3.42 H Est Glomerular Filtrat Rate mL/min 14 L Glucose Level 110 Calcium Level 9.3 Medications Medication Current Medications Ondansetron HCl (Zofran Inj) 4 mg Q6H PRN IV NAUSEA/VOMITING; Start 05/07/18 at 05:00 Acetaminophen (Tylenol Tab) 650 mg Q6H PRN PO .PAIN 1-3 OR TEMP; Start 05/07/18 at 05:00 Heparin Sodium (Porcine) (Heparin (5000 Units/1ml)) 5,000 unit Q12 SC Last administered on 05/12/18 08:47; Admin Dose 5,000 UNIT; Start 05/07/18 at 09:00 Albuterol/ Ipratropium (Duoneb) 3 ml Q2H RESP THERAPY PRN HHN SHORTNESS OF BREATH; Start 05/07/18 at 05:00 Amlodipine Besylate (Norvasc) 10 mg DAILY PO Last administered on 05/12/18 08:26; Admin Dose 10 MG; Start 05/07/18 at 09:00 Pantoprazole (Protonix Tab) 40 mg AC BREAKFAST PO Last administered on 05/12/18 06:06; Admin Dose 40 MG; Start 05/07/18 at 07:00 Amoxicillin/ Clavulanate Potassium (Augmentin) 875 mg BID PO Last administered on 05/12/18 08:25; Admin Dose 875 MG; Start 05/07/18 at 21:00; Stop 05/17/18 at 20:59 Levothyroxine Sodium (Synthroid) 88 mcg AC BREAKFAST PO Last administered on 05/12/18 06:06; Admin Dose 88 MCG; Start 05/08/18 at 07:00 Dapsone (Dapsone) 50 mg QAM PO Last administered on 05/11/18 08:02; Admin Dose 50 MG; Start 05/08/18 at 09:00 Docusate Sodium (Colace) 250 mg DAILY PO Last administered on 05/12/18 08:25; Admin Dose 250 MG; Start 05/08/18 at 09:00 Prednisone (Prednisone) 5 mg QPM PO Last administered on 05/11/18 20:26; Admin Dose 5 MG; Start 05/09/18 at 21:00 Prednisone (Prednisone) 20 mg QAM PO Last administered on 05/12/18 08:26; Admin Dose 20 MG; Start 05/09/18 at 09:00 Sodium Polystyrene Sulfonate (Kayexalate) 15 gm MoFr@0900 PO Last administered on 05/12/18 08:26; Admin Dose 15 GM; Start 05/12/18 at 09:00 GLENDY WOOD MD May 12, 2018 10:32
[2018-05-12] MEDS: DAPSONE 25 MG TABLET PO SCH (10:33)
--- NOTE | 2018-05-12 15:53 | PN ---
Date/Time of Note Date/Time of Note DATE: 05/12/18 TIME: 15:50 Assessment/Plan VTE Prophylaxis Risk score (from Nsg)>0 risk: 1 SCD applied (from Ns): No SCD contraindicated: low risk/ambulating Pharmacological prophylaxis: heparin Lines/Catheters IV Catheter Type (from Nrsg): Saline Lock Urinary Cath still in place: No Assessment/Plan Assessment/Plan Asessment and plan: 57 yo F who had presented with headaches tremor, and sinus pressure and lethargy now managed as follows : 1. Symptomatic hyponatremia : resolved - Likely due to adrenal insufficency as below - Monitor for now, follow BMP and renal recommendations - free water restriction per nephro 2. Adrenal insufficiency - Per Dr. Yates, this is likely iatrogenic due to steroid treatment for vasculitis with rapid tapering. 3. 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 The patient is status post rituximab x4, status post pulse steroids, status post plasmapheresis at outside hospital. Here tests show microscopic hematuria and mild proteinuria -Continue steroids as ordered and recommended by endocrinology and renal team 4. Poorly controlled hypothyroidism -endocrinology team following the patient -Continue Synthroid at current dose, follow-up endocrinology recommendations Result Diagram: 05/12/18 0507 05/12/18 0507 Subjective 24 Hr Interval Summary Free Text/Dictation No acute overnight events. Patient feeling well today She does report feeling chills this morning, which she's had for several weeks. Had heart palpitations yesterday, nothing today. Normal sinus on telemetry Exam/Review of Systems Exam Vitals Vital Signs Date Temp Pulse Resp B/P (MAP) Pulse Ox O2 O2 Flow FiO2 Time Delivery Rate 05/12/18 98.4 92 18 139/94 93 Room Air 15:05 (109) Intake and Output 05/11/18 05/11/18 05/12/18 1515:00 23:00 07:00 IntakeIntake Total 800 ml 560 ml BalanceBalance 800 ml 560 ml Exam General: A&O x3, answering questions appropriately, has good insight into diseas e HEENT: NC/ AT. PERRL. EOM intact Neck: supple CVS: S1, S2, RRR. no murmurs. no pain on chest wall palpation Lungs: CTA b/l. no wheezing or rhonchi Abd: soft, nontender, +BS Ext: moving all extremities skin: no rashes Results Results 24hrs Laboratory Tests Test 05/12/18 05:07 White Blood Count 7.3 Red Blood Count 2.66 L Hemoglobin 8.1 L Hematocrit 25.2 L Mean Corpuscular Volume 94.7 Mean Corpuscular Hemoglobin 30.5 Mean Corpuscular Hemoglobin Concent 32.1 Red Cell Distribution Width 19.7 H Platelet Count 195 Mean Platelet Volume 8.6 Immature Granulocytes % 6.600 H Neutrophils % 72.7 Lymphocytes % 13.9 L Monocytes % 6.1 Eosinophils % 0.3 Basophils % 0.4 Nucleated Red Blood Cells % 0.0 Immature Granulocytes # 0.480 H Neutrophils # 5.3 Lymphocytes # 1.0 Monocytes # 0.5 Eosinophils # 0.0 Basophils # 0.0 Nucleated Red Blood Cells # 0.0 Sodium Level 135 Potassium Level 4.5 Chloride Level 94 L Carbon Dioxide Level 31 Anion Gap 10 Blood Urea Nitrogen 65 H Creatinine 3.42 H Est Glomerular Filtrat Rate mL/min 14 L Glucose Level 110 Calcium Level 9.3 Medications Medication Current Medications Ondansetron HCl (Zofran Inj) 4 mg Q6H PRN IV NAUSEA/VOMITING; Start 05/07/18 at 05:00 Acetaminophen (Tylenol Tab) 650 mg Q6H PRN PO .PAIN 1-3 OR TEMP; Start 05/07/18 at 05:00 Heparin Sodium (Porcine) (Heparin (5000 Units/1ml)) 5,000 unit Q12 SC Last adm inistered on 05/12/18at 08:47; Admin Dose 5,000 UNIT; Start 05/07/18 at 09:00 Albuterol/ Ipratropium (Duoneb) 3 ml Q2H RESP THERAPY PRN HHN SHORTNESS OF BREATH; Start 05/07/18 at 05:00 Amlodipine Besylate (Norvasc) 10 mg DAILY PO Last administered on 05/12/18at 08:26; Admin Dose 10 MG; Start 05/07/18 at 09:00 Pantoprazole (Protonix Tab) 40 mg AC BREAKFAST PO Last administered on 05/12/18at 06:06; Admin Dose 40 MG; Start 05/07/18 at 07:00 Amoxicillin/ Clavulanate Potassium (Augmentin) 875 mg BID PO Last administered on 05/12/18 08:25; Admin Dose 875 MG; Start 05/07/18 at 21:00; Stop 05/17/18 at 20:59 Levothyroxine Sodium (Synthroid) 88 mcg AC BREAKFAST PO Last administered on 05/12/18 06:06; Admin Dose 88 MCG; Start 05/08/18 at 07:00 Dapsone (Dapsone) 50 mg QAM PO Last administered on 05/12/18 10:33; Admin Dose 50 MG; Start 05/08/18 at 09:00 Docusate Sodium (Colace) 250 mg DAILY PO Last administered on 05/12/18 08:25; Admin Dose 250 MG; Start 05/08/18 at 09:00 Prednisone (Prednisone) 5 mg QPM PO Last administered on 05/11/18 20:26; Admin Dose 5 MG; Start 05/09/18 at 21:00 Prednisone (Prednisone) 20 mg QAM PO Last administered on 05/12/18 08:26; Admin Dose 20 MG; Start 05/09/18 at 09:00 Sodium Polystyrene Sulfonate (Kayexalate) 15 gm MoFr@0900 PO Last administered on 05/12/18 08:26; Admin Dose 15 GM; Start 05/12/18 at 09:00 YAMEL SALOMON MD May 12, 2018 15:53
[2018-05-12] MEDS: predniSONE 5 MG TAB PO SCH (20:43)
[2018-05-13] VITALS (10 sets, daily range): BP systolic 109–132; BP diastolic 72–88; PULSE 69–105; RESP 17–19
[2018-05-13] MEDS: PANTOPRAZOLE (EC) 40 MG TAB PO SCH (06:09)
[2018-05-13] MEDS: LEVOTHYROXINE 88 MCG TAB PO SCH (06:09)
[2018-05-13] MEDS: AMOXICILLIN/CLAV 875 MG TAB PO SCH (08:17)
[2018-05-13] MEDS: AMLODIPINE 10 MG TAB PO SCH (08:17)
[2018-05-13] MEDS: DOCUSATE SODIUM 250 MG CAP PO SCH (08:17)
[2018-05-13] MEDS: predniSONE 20 MG TAB PO SCH (08:17)
[2018-05-13] MEDS: HEPARIN 5,000 UNIT/1 ML VIAL SC SCH (08:38)
--- NOTE | 2018-05-13 08:52 | PN ---
DATE: 05/13/2018 SUBJECTIVE: The patient is stable, no events overnight. OBJECTIVE: VITAL SIGNS: Blood pressure is 128/87, pulse 87, respiration 19, temperature 98.3. HEENT: Head is normocephalic. NECK: Supple. HEART: Regular rate. LUNGS: Show diminished breath sounds at the base. ABDOMEN: Soft, nontender to palpation without rebound or guarding. EXTREMITIES: Negative for clubbing, cyanosis, no edema. DERMATOLOGIC: No rashes. MUSCULOSKELETAL: No joint effusion. NEUROLOGIC: No change in exam. MEDICATIONS: Reviewed. LABORATORY DATA: Shows sodium 137, potassium 4.4, BUN 72, creatinine 3.58 phosphorus 5.2. White cou nt 7.3, hemoglobin 8.0, platelet count 205. ASSESSMENT AND PLAN: 1. Nonoliguric acute kidney injury with previously unknown baseline creatinine. Patient's most rece nt baseline creatinine per patient is approximately around 3.3 mg/dL. Etiology of patient's acute ki dney injury is secondary to ANCA-associated vasculitis. The patient is status post rituximab x4, sta tus post steroid therapy, status post plasmapheresis at outside hospital. The etiology of patient's current acute kidney injury may be secondary to hemodynamics, questionable ATN, possible progression of disease. The patient currently is on prednisone 25 mg daily. Patient scheduled for rituximab inf usion in approximately 2 weeks with an outside time study statistician. At this point, continue current treat ment plans, supportive care, renally dose all meds. 2. Hyperkalemia, improved. Continue to monitor. Continue low-potassium diet. 3. Hypernatremia, improved. Continue to monitor, continue free water restriction. 4. Anemia. Monitor hemoglobin and hematocrit levels. 5. Mineral bone disorder, monitor calcium and phosphorus levels. 6. Hypothyroidism, continue Synthroid. 7. ANCA-associated vasculitis. The patient is currently on prednisone and on Rituxan and getting a Rituxan infusion in approximately 1 to 2 weeks. Dictated By: KAYLIN WEISS DO NR/NTS Conf#: [id number] DID#: [id number] CC: YAMEL SALOMON MD; RODRIGO WU MD;*EndCC*
[2018-05-13] MEDS: DAPSONE 25 MG TABLET PO SCH (09:12)
[2018-05-13] MEDS ORDERED: LEVO100T8 PO (15:02)
[2018-05-13] MEDS ORDERED: PRED20TA PO (15:02)
--- NOTE | 2018-05-13 15:05 | PDOCDIS ---
Discharge Instructions DIAGNOSIS Discharge Diagnosis Iatrogenic adrenal insufficiency Hypothyroidism CONDITION [id number] Patient Condition: [id number] Good HOME CARE INSTRUCTIONS: [id number] Diet Instructions: [id number] Regular ACTIVITY: [id number] Activity Restrictions: [id number] No Restrictions FOLLOW UP/APPOINTMENTS Follow-up Plan 1. Continue to take levothyroxine (synthroid) 100 mcg daily before breakfast. This is higher than your previous dose. 2. Take Prednisone 20mg in the morning, 5mg at night. Continue this dose until you see your image archivist 3. Take all other medications as prescribed. 4. Make an appointment with your image archivist in 1-2 weeks. 5. Return to the emergency room if your symptoms worsen YAMEL SALOMON MD May 13, 2018 15:05
--- NOTE | 2018-05-13 17:23 | DS ---
Date/Time of Note Date/Time of Note DATE: 05/13/18 TIME: 17:20 Discharge Summary Admission/Discharge Info Admit Date/Time May 07, 2018 at 04:27 Discharge Date/Time May 13, 2018 at 16:46 Discharge Diagnosis Iatrogenic adrenal insufficiency Hypothyroidism Patient Condition: Good Consults Dr. Yates, endocrinology Dr. Briggs, nephrology Procedures None Hx of Present Illness This is a 57-year-old female with a history of depression, hypothyroidism, vasculitis who presents the ER complaining of feeling "depressed". She also complains of headache and dizziness. She says she feels hopeless. She denies suicidal or homicidal ideation even though she says in the past she thought about hurting herself. Patient appears somewhat lethargic/sleepy, but arousable. She has not been answering all questions. She said she was hungry and was asking for food. When she presented to ER, she is found to have sodium of 123. Head CT shows paranasal sinus disease and presence of bubbly secretions in the right sphenoid sinus suggests an acute component. . Hospital Course Upon further workup she was found to be in severe adrenal insufficiency. Hyponatremic to low 120s; AM cortisol 2. Also slightly hypothyroid. Dr. Yates was consulted. We increased her prednisone back to 20mg + 5mg qpm and increased synthroid dose. Got IV fluids with gradual replacement of sodium to eunatremia. She will be discharged to follow her it risk and assurance senior manager outpatient. Home Meds Active Scripts Prednisone* (Prednisone*) 20 Mg Tab, 20 MG PO QAM, #30 TAB Prov:YAMEL SALOMON MD 05/13/18 Levothyroxine Sodium* (Levothyroxine Sodium*) 100 Mcg Tablet, 100 MCG PO BEFORE BREAKFAST, #30 TAB Prov:YAMEL SALOMON MD 05/13/18 Reported Medications Sodium Polystyrene Sulfonate (Kayexalate) 15 Gm/60 Ml Susp, 15 GM PO Q SAT AND MONDAYS, ML 05/10/18 Docusate Sodium (Stool Softener) 100 Mg Tablet, 100 MG PO BID 05/07/18 Pantoprazole* (Pantoprazole*) 40 Mg Tablet.dr 40 MG PO DAILY 05/07/18 Amlodipine Besylate* (Amlodipine Besylate*) 10 Mg Tablet, 10 MG PO DAILY for 30 Days, #30 05/07/18 Dapsone* (Dapsone*) 25 Mg Tablet, 50 MG PO QAM for 30 Days, #60 05/07/18 Prednisone* (Prednisone*) 5 Mg Tab, 5 MG PO QPM for 30 Days, #30 05/07/18 Discontinued Reported Medications Levothyroxine Sodium* (Levothyroxine Sodium*) 50 Mcg Tablet, 50 MCG PO QAM for 30 Days, #30 TAKE 1 TABLET BY MOUTH EVERY DAY 05/07/18 Follow-up Plan 1. Continue to take levothyroxine (synthroid) 100 mcg daily before breakfast. This is higher than your previous dose. 2. Take Prednisone 20mg in the morning, 5mg at night. Continue this dose until you see your pet care associate 3. Take all other medications as prescribed. 4. Make an appointment with your pet care associate in 1-2 weeks. 5. Return to the emergency room if your symptoms worsen Primary Care Provider Care Physician No Primary Time spent on discharge: > 30 minutes Pending Labs Laboratory Tests Test 05/13/18 05:22 White Blood Count 7.3 10^3/ul (4.8-10.8) Red Blood Count 2.68 10^6/ul (4.20-5.40) Hemoglobin 8.0 g/dl (12.0-16.0) Hematocrit 25.5 % (37.0-47.0) Mean Corpuscular Volume 95.1 fl (82.0-101.0) Mean Corpuscular Hemoglobin 29.9 pg (29.0-33.0) Mean Corpuscular Hemoglobin Concent 31.4 g/dl (32.0-37.0) Red Cell Distribution Width 19.8 % (11.5-14.5) Platelet Count 205 10^3/UL (140-415) Mean Platelet Volume 9.0 fl (7.4-10.4) Immature Granulocytes % 6.700 % (0.001-0.429) Neutrophils % 64.7 % (39.0-77.0) Lymphocytes % 20.8 % (15.0-51.0) Monocytes % 7.0 % (0.0-11.0) Eosinophils % 0.4 % (0.0-7.0) Basophils % 0.4 % (0.0-2.0) Nucleated Red Blood Cells % 0.0 /100WBC (0.0-0.0) Immature Granulocytes # 0.490 10^3/ul (0.0-0.031) Neutrophils # 4.7 10^3/ul (1.6-7.5) Lymphocytes # 1.5 10^3/ul (0.8-2.9) Monocytes # 0.5 10^3/ul (0.3-0.9) Eosinophils # 0.0 10^3/ul (0.0-0.5) Basophils # 0.0 10^3/ul (0.0-0.1) Nucleated Red Blood Cells # 0.0 10^3/ul (0.0-0.0) Sodium Level 137 mmol/L (135-144) Potassium Level 4.4 mmol/L (3.5-5.1) Chloride Level 99 mmol/L (97-110) Carbon Dioxide Level 32 mmol/L (21-31) Anion Gap 6 (5-13) Blood Urea Nitrogen 72 mg/dl (7-20) Creatinine 3.58 mg/dl (0.44-1.00) Est Glomerular Filtrat Rate mL/min 13 mL/min (>60) Glucose Level 101 mg/dl (70-220) Calcium Level 9.4 mg/dl (8.4-10.2) Phosphorus Level 5.2 mg/dl (2.5-4.9) Magnesium Level 1.8 mg/dl (1.7-2.5) Thyroid Stimulating Hormone (TSH) 7.450 MIU/L (0.465-4.680) Free Thyroxine 0.98 ng/dl (0.64-1.79) YAMEL SALOMON MD May 13, 2018 17:23
== END 2018-05-13 16:46 | disposition home or self-care (01) | DRG 644 ==
LOC: E/R 22:12 → 6WM 05-07 04:27
PROVIDERS: ADMIT Internal Medicine; ATTEND Internal Medicine
DX: E27.3 Drug-induced adrenocortical insufficiency (principal); E87.1 Hypo-osmolality and hyponatremia; M31.8 Other specified necrotizing vasculopathies; N17.9 Acute kidney failure, unspecified; E87.0 Hyperosmolality and hypernatremia; E87.5 Hyperkalemia; N18.2 Chronic kidney disease, stage 2 (mild); E03.9 Hypothyroidism, unspecified; J01.90 Acute sinusitis, unspecified; D63.8 Anemia in other chronic diseases classified elsewhere; F32.9 Major depressive disorder, single episode, unspecified; T38.0X5A Adverse effect of glucocorticoids and synthetic analogues, initial encounter; Y92.019 Unspecified place in single-family (private) house as the place of occurrence of the external cause
CPT/HCPCS: 36415; 70450; 71045; 80048; 80053; 80061; 81001; 81003; 82043; 82436; 82533; 83036; 83735; 83930; 83935; 84100; 84133; 84155; 84300; 84436; 84439; 84443; 84479; 84484; 84560; 85025; 85610; 85651; 85730; 86021; 86038; 86160; 86226; 93005; 97161; J1644; J7040; J7512